=== PATIENT | male | born 1970 | race Caucasian/White ===

== ENCOUNTER → 2017-10-02 | Outpatient (CLI) | payer BC ==
[~2017-10-02] MED LIST: GLC/500 PO; LABE1TAB28 PO
[2017-10-02 13:35] LABS: BLOOD UREA NITROGEN 19 mg/dl (7-18); CALCIUM 8.6 mg/dl (8.5-10.1); CARBON DIOXIDE 28 mmol/L (21-32); CREATININE 0.85 mg/dl (0.60-1.40); GLUCOSE 163 mg/dl (70-99); POTASSIUM 4.2 mmol/L (3.5-5.1); SODIUM 139 mmol/L (136-145)
[2017-10-03 07:10] LABS: HEMOGLOBIN A1C 8.1 % (4.5-5.6)
== END | disposition home or self-care (01) ==
LOC: C.LABPBG 09:30
PROVIDERS: ATTEND Family Medicine
DX: R73.9 Hyperglycemia, unspecified (principal); E78.5 Hyperlipidemia, unspecified; E88.81 Metabolic syndrome and other insulin resistance

== ENCOUNTER 2023-10-03 14:46 | Inpatient (IN) ==
--- NOTE | 2023-10-03 15:30 | ED Triage Note ---
Date of Service October 03, 2023 Provider in Triage Author: Elise Auguste History of Present Illness This patient was briefly evaluated while in triage. An abbreviated physical exam was performed. This patient is a 52-year-old Male who presents to the ED for evaluation of an infection of a sore on his right foot. Symptoms started about 2 weeks ago, but getting worse. He saw his PCP and they referred him to the ER for further evaluation. Intermittent fevers. White discharge from the foot. Also having pain in the right calf. Has not had any blood work or imaging yet. Physical Exam GENERAL: Non-toxic and in no acute distress. HEENT: Pupils equal. No obvious scleral icterus. HEART: Regular rate and rhythm. LUNGS: Clear to auscultation. No accessory muscle use. NEURO: Alert and oriented. MUSCULOSKELETAL: The patient's right foot is bandaged and bandage was not removed in triage. He is tender to palpation over the right foot. He is also tender to palpation over the right calf with some swelling of the right lower extremity. Initial orders for labs and / or imaging were placed and patient was placed in the waiting area until a bed is available. Please see further documentation for the full ED course. MDM / Impression Impression Impression: Osteomyelitis, Cellulitis, Failure of outpatient treatment, Leukocytosis Impression: Osteomyelitis Qualifiers: Osteomyelitis type: unspecified type Osteomyelitis location: foot Laterality: right Qualified Code(s): M86.9 - Osteomyelitis, unspecified Cellulitis Qualifiers: Site of cellulitis: extremity Site of cellulitis of extremity: lower extremity Laterality: right Qualified Code(s): L03.115 - Cellulitis of right lower limb Leukocytosis Qualifiers: Leukocytosis type: unspecified Qualified Code(s): D72.829 - Elevated white blood cell count, unspecified
[2023-10-03 17:05] LABS: Basophils # (auto) 0.05 K/uL (0.00-0.20); Basophils % (auto) 0.4 %; Eosinophils # (auto) 0.04 K/uL (0.00-0.50); Eosinophils % (auto) 0.3 %; Hematocrit (blood only) 37.8 % (42.0-52.0); Hemoglobin 12.6 g/dl (14.0-18.0); Immature Granulocytes # (auto) 0.06 K/uL (0.01-0.20); Immature Granulocytes % (auto) 0.5 %; Mean Corpuscular Hemoglobin 28.3 pg (25.0-34.0); Mean Corpuscular Hgb Conc 33.3 g/dL (32.0-36.0); Mean Corpuscular Volume 84.9 fL (80.0-100.0); Mean Platelet Volume 9.1 fL (9.4-12.4); Monocytes # (auto) 0.44 K/uL (0.11-0.59); Monocytes % (auto) 3.8 %; Neutrophils # (auto) 10.07 K/uL (1.40-6.50); Platelet Count 437 K/uL (130-400); RDW Coefficient of Variation 12.2 % (11.5-14.5); RDW Standard Deviation 37.8 fL (36.4-46.3); Red Blood Count 4.45 M/uL (4.70-6.10); White Blood Count 11.46 K/ul (4.8-10.8)
[2023-10-03] MEDS: SODIUM CHLORIDE 0.9% 500 ML IV ONE ×2 (17:10→19:48)
--- NOTE | 2023-10-03 17:15 | XRay Report ---
RIGHT FOOT 3 VIEWS CLINICAL HISTORY: Infection. FINDINGS: 3 views of the right foot are correlated with radiographs of the first toe dated 01/30/2021. The skeletal structures are osteopenic. There is severe erosive/destructive change seen involving th e medial cortex throughout the first distal phalanx with bony fragmentation and displaced fragments. No additional similar foci of destructive change are identified throughout the remainder of the foot. There is significant soft tissue edema in the first toe with soft tissue gas. Mild arthritic change is seen throughout the foot, greatest at the first metatarsophalangeal joint. There are small dorsal and large plantar heel spurs. Atherosclerotic calcification is observed in the regional arteries. IMPRESSION: 1. There is osteomyelitis of the first distal phalanx as above with significant destructive change, o verlying soft tissue edema, and soft tissue gas. 2. No additional similar appearing foci of destructive bony change are seen throughout the remainder of the foot. Electronically signed by: Peng Alexandre M.D. 10/03/2023 5:14 PM
[2023-10-03 17:20] LABS: Albumin Globulin Ratio 0.9 (0.9-2); Albumin Level 4.1 gm/dl (3.4-5.0); BUN Creatinine Ratio 19.1 (10-20); Bilirubin,Total 1.1 mg/dl (0.2-1.0); Calcium 9.6 mg/dl (8.6-10.3); Creatinine Clr Calc Pharmacy 130.1 ml/min; Est GFR (African American) 108.4 ml/min; Est GFR (Non-African American) 93.5 ml/min; Globulin 4.4 gm/dl (2.5-4.0); Potassium 4.3 mmol/L (3.5-5.1); Total Protein 8.5 gm/dl (6.0-8.3)
[2023-10-03 17:30] LABS: INR 1.1 (0.9-1.1); Partial Thromboplastin Ratio 1.1; Partial Thromboplastin Time 30 Seconds (21-31); Prothrombin Time 11.9 Seconds (9.0-12.0)
[2023-10-03] MEDS ORDERED: VANCOMYCIN CONSULT ACTIVE PRN (18:59)
[2023-10-03] MEDS: CEFEPIME 2,000 MG/20 ML VIAL IV STA (20:01)
[2023-10-03] MEDS: VANCOMYCIN HCL 2,750 MG in SODIUM CHLORIDE 0.9% 500 ML IV ONE (20:08)
--- NOTE | 2023-10-03 20:28 | Emergency Department Note ---
Impression & Plan Osteomyelitis, Cellulitis, Failure of outpatient treatment, Leukocytosis ED Provider Note NAME: GERALDO MORAN AGE: 52 SEX: M : 1970 ARRIVES VIA: Walk-In INFORMANT: [Patient] ED PROVIDER(S): [Peng Anderson MD] CHIEF COMPLAINT: Infection HISTORY OF PRESENT ILLNESS: The patient is a 52-year-old male who is diabetic. He has had an ulcer on his right first toe for some time. 2 weeks ago, he noticed some increasing redness and swelling of the right foot and the right toe ulcer appeared infected. Patient noticed some pain in the right groin that he thought may be consistent with some swollen glands. He noticed a fever about a week ago. The patient spoke with his doctors office last week, they wanted him to come to the ED, the patient refused. He did see his primary doctor's office today, he was referred again to the ED. The patient did receive what sounds like amoxicillin from a family member. He has been taking this once a day for the last 5 days. Patient states that because of the swelling and odor to the wound, because of concern for infection, because at the advice of his doctors office, he presents to the ER for evaluation. PMHx/PSHx/Social Hx: See Below PHYSICAL EXAM: GENERAL: Patient is in no acute distress. HEENT: No acute trauma, normocephalic atraumatic, mucous membranes moist, no nasal congestion. NECK: No stridor, no adenopathy, no meningismus, trachea is midline. LUNGS: Clear to auscultation bilaterally, no wheeze, no rhonchi, breath sounds equal. HEART: Mildly tachycardic, regular rhythm, no murmurs. ABDOMEN: Soft, nontender, no peritonitis. EXTREMITIES: No cyanosis. The patient has a large ulcer to the medial posterior aspect of the right first toe. There is drainage and a foul odor. There is surrounding erythema and swelling that is tracking up the foot. He does have right groin adenopathy which is tender to palpate. NEUROLOGIC: Oriented x 3, no acute motor or sensory deficits, no focal weakness. SKIN: No jaundice, no diaphoresis. DIFFERENTIAL DIAGNOSIS: Osteomyelitis, cellulitis, DVT, sepsis, bacteremia, among others. EMERGENCY DEPARTMENT PROCEDURES: MEDICAL DECISION MAKING: There is a mild leukocytosis, this would be consistent with infection. Patient was somewhat anemic with a hemoglobin of 12.6. Platelet count slightly elevated. No coagulopathy. No renal failure or significant electrolyte abnormality. Lactic acid level was not elevated making severe sepsis less likely. Bilirubin mildly elevated, the remaining liver enzymes were unremarkable. Right foot film does show osteomyelitis of the first toe. Right leg venous ultrasound showed adenopathy, no clot. On exam, the patient had a large ulcer to the right first toe as well as a surrounding cellulitis. The patient received 1 L of IV saline for hydration. He was given IV vancomycin and IV cefepime. A culture of the patient's wound drainage was obtained and is pending. The patient has an osteomyelitis/cellulitis of his right foot. He is likely going to require surgical intervention/amputation. I spoke with the patient about the need for hospital stay, I did speak with case management, the on-call hospitalist was consulted. Prior/Outside records/notes reviewed: Today's family practice note describing his presentation and the referral to the ED. Imaging/x-ray results per my interpretation: Right foot film shows a right first toe osteomyelitis with soft tissue swelling. No obvious fracture. Chronic Medical/Social conditions affecting care: History of diabetes Care/Management discussed with: Case management, the on-call hospitalist. Level of care consideration(s): After review of the information above and other included data: --I believe the patient requires escalation of care to admission DISPOSITION: Admission Past Med/Surg History Medical History Diabetes mellitus type 2, uncontrolled Abnormal liver function test Cutaneous candidiasis Dysarthria Dyslipidemia Myasthenia gravis (~07/2018) Paresthesia Transient ischemic attack Venous insufficiency Vertebrobasilar artery insufficiency Vitamin D deficiency Surgical History No significant past surgical history Family History Father Renal failure Mother Rheumatoid arthritis Hypertension Breast cancer Denies family history of Colon cancer Ovarian cancer Prostate cancer Myocardial infarction Social History Smoking Status: Never smoker Second Hand Exposure: No; Do You Dip or Chew Tobacco: No; Hx Alcohol Use: No Hx Substance Use: No Preferred Language: Russian Communication Ability: Effective Visual Impairment: No Limitations Hearing Ability: Normal Field Talent Qualification Specialist Required: No marital status: Current Living Situation: Spouse current occupational status: employed How many Children do You have: 2 Feels Safe at Home: Yes Childhood Exposure to Second-Hand Smoke: No Diet: regular Dental Care, Regularly: No Physical Activity Frequency: Daily Seatbelt Use: always Sunscreen Use: No Assistive Devices: None Allergies Allergies Allergy/AdvReac Type Severity Reaction Status Date / Time doxycycline Allergy Mild Hives Verified 10/03/23 20:09 PAULINA Inhibitors AdvReac Intermediate Cough Verified 10/03/23 20:09 Home Meds Home Medications Medication Instructions Recorded Confirmed pyridostigmine bromide 60 mg tablet 120 mg PO QID PRN NEEDED FOR MS 02/22/21 10/03/23 prednisone 5 mg tablet 5 mg PO DAILY 02/21/23 10/03/23 Previous Rx's Medication Instructions Recorded blood sugar diagnostic ([employer] #100 ea 11/29/21 Verio test strips) blood-glucose meter ([employer] #1 ea 11/29/21 Verio Meter) lancets 33 gauge ([employer] Delica #100 ea 11/29/21 Lancets) tirzepatide 15 mg/0.5 mL 15 mg (0.5 mL) subcut WK #6 mL 02/21/23 subcutaneous pen injector (Urban) labetalol 200 mg tablet 200 mg PO BID #180 tabs 02/22/23 metformin 1,000 mg tablet 1,000 mg PO BID #180 tabs 09/10/23 amoxicillin 875 mg-potassium 1 tab PO Q12H 10 days #20 tabs 10/03/23 clavulanate 125 mg tablet Results & Data (ED) Vital Signs Vital Signs - 24 hr 10/03/23 15:27 10/03/23 19:45 10/03/23 19:45 Temperature 36.2 C L 37.4 C Temperature Source Temporal Artery Scan Oral Pulse Rate 103 H 102 H Pulse Rate [Finger] 103 H Respiratory Rate 20 20 Respiratory Effort / Characteristics Non-Labored Spontaneous Non-Labored Spontaneous Respiratory Depth Normal Normal Blood Pressure 138/86 Blood Pressure [Right Arm] 166/98 H Blood Pressure Mean 103 Blood Pressure Mean [Right Arm] 120 Pulse Oximetry 98 97 Oxygen Delivery Method Room Air Room Air Sepsis New/Unexplained Change in Mental Status No Sepsis Action Taken by Nursing No Action Required Home Medications Current Medication List: was personally reviewed by me Laboratory Data Attestation: I reviewed the patient's lab results. 10/03/23 16:38 10/03/23 16:38 Lab Results 10/03/23 Range/Units 16:38 WBC 11.46 H (4.8-10.8) K/ul RBC 4.45 L (4.70-6.10) M/uL Hgb 12.6 L (14.0-18.0) g/dl Hct 37.8 L (42.0-52.0) % MCV 84.9 (80.0-100.0) fL MCH 28.3 (25.0-34.0) pg MCHC 33.3 (32.0-36.0) g/dL RDW Std Deviation 37.8 (36.4-46.3) fL RDW Coeff of Berna 12.2 (11.5-14.5) % Plt Count 437 H (130-400) K/uL MPV 9.1 L (9.4-12.4) fL Immature Gran % (Auto) 0.5 % Neut % (Auto) 88.0 % Lymph % (Auto) 7.0 % [place] % (Auto) 3.8 % Eos % (Auto) 0.3 % Baso % (Auto) 0.4 % Neut # (Auto) 10.07 H (1.40-6.50) K/uL Lymph # (Auto) 0.80 L (1.20-3.40) K/uL [place] # (Auto) 0.44 (0.11-0.59) K/uL Eos # (Auto) 0.04 (0.00-0.50) K/uL Baso # (Auto) 0.05 (0.00-0.20) K/uL Immature Gran # (Auto) 0.06 (0.01-0.20) K/uL PT 11.9 (9.0-12.0) Seconds INR 1.1 (0.9-1.1) APTT 30 (21-31) Seconds PTT Ratio 1.1 Sodium 134 L (136-145) mmol/L Potassium 4.3 (3.5-5.1) mmol/L Chloride 100 (98-107) mmol/L Carbon Dioxide 24 (21-32) mmol/L Anion Gap 10 (3-11) BUN 18 (6-23) mg/dl Creatinine 0.94 (0.6-1.4) mg/dl Est Cr Clr Drug Dosing 130.1 ml/min Est GFR ( Amer) 108.4 ml/min Est GFR (Non-Af Amer) 93.5 ml/min BUN/Creatinine Ratio 19.1 (10-20) Glucose 160 H (70-99(Fasting)) mg/dl Lactate 1.4 (0.4-2.0) mmol/L Calcium 9.6 (8.6-10.3) mg/dl Magnesium 2.0 (1.7-2.4) mg/dl Total Bilirubin 1.1 H (0.2-1.0) mg/dl AST 17 (13-39) U/L ALT 18 (7-52) U/L Alkaline Phosphatase 52 (34-104) U/L Total Protein 8.5 H (6.0-8.3) gm/dl Albumin 4.1 (3.4-5.0) gm/dl Globulin 4.4 H (2.5-4.0) gm/dl Albumin/Globulin Ratio 0.9 (0.9-2) Administered Medications Acetaminophen (Acetaminophen 325 Mg Tab) 650 mg PO Q6H DELVIN Stop: 11/03/23 00:00 Last Admin: 10/04/23 00:06 Dose: Not Given Documented By: DEVON Insulin Aspart (Insulin Aspart Per Unit Charge) 0 units SC ACHS DELVIN Stop: 11/02/23 20:59 Last Admin: 10/04/23 00:18 Dose: Not Given Documented By: DEVON Co-signed By: HEMANTH Labetalol HCl (Labetalol Hcl 200 Mg Tab) 200 mg PO BID DELVIN Stop: 11/02/23 23:18 Last Admin: 10/04/23 00:06 Dose: 200 mg Documented By: DEVON Discontinued Medications Sodium Chloride (Nss) 500 mls @ 999 mls/hr IV .Q31M ONE Stop: 10/03/23 16:02 Last Infusion: 10/03/23 19:07 Dose: Infused Documented By: Admin: 10/03/23 17:10 Dose: 999 mls/hr Documented By: PAMELLA Cefepime HCl (Maxipime) 2,000 mg in 20 mls @ 5 mls/min IV NOW STA; Protocol Stop: 10/03/23 19:02 Last Admin: 10/03/23 20:01 Dose: 5 mls/min Documented By: SABAS Vancomycin HCl 2,750 mg/ (Sodium Chloride) 555 mls @ 200 mls/hr IV NOW ONE Stop: 10/03/23 21:45 Last Infusion: 10/03/23 23:12 Dose: Infused Documented By: Admin: 10/03/23 20:08 Dose: 200 mls/hr Documented By: SABAS Sodium Chloride (Nss) 500 mls @ 999 mls/hr IV .Q31M ONE Stop: 10/03/23 19:29 Last Infusion: 10/03/23 20:26 Dose: Infused Documented By: Admin: 10/03/23 19:48 Dose: 999 mls/hr Documented By: DEEPTI Insulin Glargine (Lantus Per Unit Charge) 5 units SQ BID DELVIN Stop: 11/02/23 20:59 Last Admin: 10/04/23 00:19 Dose: Not Given Documented By: DEVON Imaging Data Radiologist's Impression: Foot X-Ray 10/03/23 15:30 RIGHT FOOT 3 VIEWS CLINICAL HISTORY: Infection. FINDINGS: 3 views of the right foot are correlated with radiographs of the first toe dated 01/30/2021. The skeletal structures are osteopenic. There is severe erosive/destructive change seen involving the medial cortex throughout the first distal phalanx with bony fragmentation and displaced fragments. No additional similar foci of destructive change are identified throughout the remainder of the foot. There is significant soft tissue edema in the first toe with soft tissue gas. Mild arthritic change is seen throughout the foot, greatest at the first metatarsophalangeal joint. There are small dorsal and large plantar heel spurs. Atherosclerotic calcification is observed in the regional arteries. IMPRESSION: 1. There is osteomyelitis of the first distal phalanx as above with significant destructive change, overlying soft tissue edema, and soft tissue gas. 2. No additional similar appearing foci of destructive bony change are seen throughout the remainder of the foot. Electronically signed by: Peng Alexandre M.D. 10/03/2023 5:14 PM Venous Doppler Study 10/03/23 15:30 Exam(s): US VENOUS RIGHT LOWER EXTREMITY EXAM: US Duplex Right Lower Extremity Veins CLINICAL HISTORY: Reason for exam: Right calf pain. TECHNIQUE: Real-time duplex ultrasound scan of the right lower extremity veins integrating B-mode two-dimensional vascular structure, Doppler spectral analysis, color flow Doppler imaging and compression. COMPARISON: No relevant prior studies available. FINDINGS: Deep veins: Unremarkable. No DVT in the visualized common femoral, femoral, proximal deep femoral or popliteal veins. The veins demonstrate normal color flow, are normally compressible, with normal phasic flow and/or augmentation response. Soft tissues: No acute findings. No popliteal cyst. Lymph nodes: Prominent right inguinal lymph nodes within normal fatty hilum favored to be reactive. IMPRESSION: No evidence of right lower extremity deep venous thrombosis. Electronically signed by: Mj Modi M.D. 10/03/23 21:08 PM Discharge Plan Visit Data Chief Complaint: Infection, Wound Stated Complaint: OPEN SORE ON FOOT (R), INFECTION ED Provider: Peng Anderson Discharge Problem: Osteomyelitis, Cellulitis, Failure of outpatient treatment, Leukocytosis Patient Disposition: Admitted As Inpatient Condition: Fair Discharge Instructions Interventions: ED Discharge Assessment Last Done: 10/03/23 23:10 Discharge Problem: Osteomyelitis Qualifiers: Osteomyelitis type: unspecified type Osteomyelitis location: foot Laterality: r ight Qualified Code(s): M86.9 - Osteomyelitis, unspecified Cellulitis Qualifiers: Site of cellulitis: extremity Site of cellulitis of extremity: lower extremity Laterality: right Qualified Code(s): L03.115 - Cellulitis of right lower limb Leukocytosis Qualifiers: Leukocytosis type: unspecified Qualified Code(s): D72.829 - Elevated white blood cell count, unspecified
[2023-10-03] MEDS ORDERED: GLUCOSE 40% GEL 15 GM TUBE PO PRN (20:35)
[2023-10-03] MEDS ORDERED: DEXTROSE 50% 50 ML SYRINGE IV PRN (20:35)
[2023-10-03] MEDS ORDERED: GLUCAGON FOR INJ 1 MG VIAL SQ PRN (20:35)
[2023-10-03] MEDS ORDERED: CARBOHYDRATES FOR HYPOGLYCEMIA PO PRN (20:35)
[2023-10-03] MEDS ORDERED: GLUCOSE 10 TAB/TUBE PO PRN (20:35)
--- NOTE | 2023-10-03 20:35 | History & Physical Report ---
Date of Service October 03, 2023 Assessment & Plan (1) Osteomyelitis of right foot: Plan: -Admit to med/surge -Currently stable and non-toxic appearing -Presented to the ED for progression of right first toes infection -Xray of the right foot shows OM of the right great toe -Patient with a leukocytosis of 11, lactate WNL -RLE venous doppler negative for DVT -S/P 1L NSS, Vancomycin, and Cefepime in the ED -We will continue with Vancomycin and cefepime for now -Wound and blood cultures were obtained in the ED, continue to follow -Will obtain Arterial doppler of the RLE and MRI of the right foot wo con for further evaluation -Will consult Orthopedics for further evaluation and management -Pain control with Tylenol and Morphine -SQ lovenox for DVT PPX -HH/DMII diet -AM CBC, CMP, mag, PT/INR (2) MG, bulbar (myasthenia gravis): Plan: -On 5 mg PO prednisone daily and Pyridostigmine -Will continue prednisone for now -Patient may require stress dose steroids if he goes to the OR during this admission (3) Diabetes mellitus type 2, uncontrolled: Plan: -Monitor BSG ACHS, goal is 110-160 -Hold metformin -Start 10 units lantus BID and CF 50 ACHS -Adjust regimen as needed (4) Hypertension, benign essential, goal below 140/90: Plan: -Stable -Continue labetalol Plan The patient was discussed with Dr. Bernal at the time of the admission History of Present Illness Chief Complaint: right foot infection Primary Care Provider: Mary Matute MD Marco is a 52 year old male with a PMH significant for Myasthenia Gravis (on chronic prednisone), recurrent Diabetic foot ulcerations, GERD, HTN, DM2 uncontrolled, HLD, TIA, and Herpes genitalis(on valacyclovir) who presented to the [facility] ED from his PCP's office today (10/03/23) due to concerns for right foot/toe infection. He was noted to be tachycardic at 103 and hypertensive at 166/98 on arrival but was otherwise stable. Labs were significant for a leukocytosis of 11 with neutrophil predominance of 10 and lactate WNL. Xray of the right foot was read as "1. There is osteomyelitis of the first distal phalanx as above with significant destructive change, overlying soft tissue edema, and soft tissue gas. 2. No additional similar appearing foci of destructive bony change are seen throughout the remainder of the foot. Venous doppler of the RLE was in process at the time of admission. Prior to admission the patient was given 1L NSS and a dose of Vancomycin and Cefepime. Patient was sitting comfortably in bed at the time of the exam. States that he has been working with Neurology to reduce the dose of his chronic prednisone as the higher doses were causing persistent hyperglycemia. He has had a diabetic ulcer on the right great toe for approximately 2 years but had been able to keep if from becoming infected. Approximately 2 weeks ago he started to develop an infection at the diabetic foot ulcer. He spoke to a family friend who prescribed him Amoxicillin but the infection progressed. Waterman feverish last night, denies recent chest pain, SOB, abd pain, nausea, vomiting, dysuria, hematuria, diarrhea, and recent trauma. States that if his toe needs to be amputated for source control and prevention of the infection moving further up his foot/leg he is fine with it. Please refer to Dr. Bernal's attestation for any changes to the treatment plan Allergies Allergy/AdvReac Type Severity Reaction Status Date / Time doxycycline Allergy Mild Hives Verified 10/03/23 20:09 PAULINA Inhibitors AdvReac Intermediate Cough Verified 10/03/23 20:09 Home Medications Medication Instructions Recorded Confirmed Type pyridostigmine bromide 60 mg tablet 120 mg PO QID PRN NEEDED FOR MS 02/22/21 10/03/23 History blood sugar diagnostic (OneTouch #100 ea 11/29/21 10/03/23 Rx Verio test strips) blood-glucose meter (OneTouch #1 ea 11/29/21 10/03/23 Rx Verio Meter) lancets 33 gauge (OneTouch Delica #100 ea 11/29/21 10/03/23 Rx Lancets) prednisone 5 mg tablet 5 mg PO DAILY 02/21/23 10/03/23 History tirzepatide 15 mg/0.5 mL 15 mg (0.5 mL) subcut WK #6 mL 02/21/23 10/03/23 Rx subcutaneous pen injector (Urban) labetalol 200 mg tablet 200 mg PO BID #180 tabs 02/22/23 10/03/23 Rx metformin 1,000 mg tablet 1,000 mg PO BID #180 tabs 09/10/23 10/03/23 Rx amoxicillin 875 mg-potassium 1 tab PO Q12H 10 days #20 tabs 10/03/23 10/03/23 Rx clavulanate 125 mg tablet Past Med/Surg History Medical History Diabetes mellitus type 2, uncontrolled Abnormal liver function test Cutaneous candidiasis Dysarthria Dyslipidemia Myasthenia gravis (~07/2018) Paresthesia Transient ischemic attack Venous insufficiency Vertebrobasilar artery insufficiency Vitamin D deficiency Surgical History No significant past surgical history Family History Father Renal failure Mother Rheumatoid arthritis Hypertension Breast cancer Denies family history of Colon cancer Ovarian cancer Prostate cancer Myocardial infarction Social History Smoking Status: Never smoker Second Hand Exposure: No; Do You Dip or Chew Tobacco: No; Hx Alcohol Use: No Hx Substance Use: No Preferred Language: Khmer Communication Ability: Effective Visual Impairment: No Limitations Hearing Ability: Normal Technical Support Coordinator Required: No Beliefs That Will Affect Care: None marital status: Current Living Situation: Spouse current occupational status: employed How many Children do You have: 2 Other Information That Helps Us Care for You: No Feels Safe at Home: Yes Safety Concerns: Feels Safe At This Time Childhood Exposure to Second-Hand Smoke: No Diet: regular Dental Care, Regularly: No Physical Activity Frequency: Daily Seatbelt Use: always Sunscreen Use: No Assistive Devices: None Physical Exam Physical Exam: Physical Exam: General: In no acute distress, stated age, well-nourished, good hygiene HEENT: Normocephalic, atraumatic, no scleral icterus, pupils around round, symmetrical, and reactive to light, moist mucus membranes, trachea midline, no thyromegaly Chest/Pulm: No respiratory distress, symmetrical chest expansion, clear breath sounds throughout Cardiac: RRR, no murmurs noted Abdomen: Negative for ascites and bruising, normoactive bowel sounds, soft, non-tender to palpation throughout Musculoskeletal: Large diabetic wound covering the majority of the ventral and lateral aspect of the right great toe with purulent drainage Extremities: Radial, dorsalis pedis, and posterior tibial pulses are intact and symmetrical, no edema noted in the BL LE's Skin: Erythema noted on the dorsal aspect of the right foot Neuro: Alert and oriented to person, place, month, year, and president, no focal defects, no tremors noted Psych: No acute distress, calm and cooperative during the exam Results & Data Results & Data Vital Signs (Past 12 Hours) Vital Signs Temp Pulse Pulse Resp BP BP Pulse Ox 10/03/23 19:45 102 H 10/03/23 19:45 37.4 C 103 H 20 166/98 H 97 10/03/23 15:27 36.2 C L 103 H 20 138/86 98 O2 Del Method 10/03/23 19:45 10/03/23 19:45 Room Air 10/03/23 15:27 Room Air Laboratory Results Abnormal lab results 10/03/23 Range/Units 16:38 WBC 11.46 H (4.8-10.8) K/ul RBC 4.45 L (4.70-6.10) M/uL Hgb 12.6 L (14.0-18.0) g/dl Hct 37.8 L (42.0-52.0) % Plt Count 437 H (130-400) K/uL MPV 9.1 L (9.4-12.4) fL Neut # (Auto) 10.07 H (1.40-6.50) K/uL Lymph # (Auto) 0.80 L (1.20-3.40) K/uL Sodium 134 L (136-145) mmol/L Glucose 160 H (70-99(Fasting)) mg/dl Total Bilirubin 1.1 H (0.2-1.0) mg/dl Total Protein 8.5 H (6.0-8.3) gm/dl Globulin 4.4 H (2.5-4.0) gm/dl Diagnostic Findings Foot X-Ray 10/03/23 15:30 RIGHT FOOT 3 VIEWS CLINICAL HISTORY: Infection. FINDINGS: 3 views of the right foot are correlated with radiographs of the first toe dated 01/30/2021. The skeletal structures are osteopenic. There is severe erosive/destructive change seen involving the medial cortex throughout the first distal phalanx with bony fragmentation and displaced fragments. No additional similar foci of destructive change are identified throughout the remainder of the foot. There is significant soft tissue edema in the first toe with soft tissue gas. Mild arthritic change is seen throughout the foot, greatest at the first metatarsophalangeal joint. There are small dorsal and large plantar heel spurs. Atherosclerotic calcification is observed in the regional arteries. IMPRESSION: 1. There is osteomyelitis of the first distal phalanx as above with significant destructive change, overlying soft tissue edema, and soft tissue gas. 2. No additional similar appearing foci of destructive bony change are seen throughout the remainder of the foot. Electronically signed by: Peng Alexandre M.D. 10/03/2023 5:14 PM Venous Doppler Study 10/03/23 15:30 Exam(s): US VENOUS RIGHT LOWER EXTREMITY EXAM: US Duplex Right Lower Extremity Veins CLINICAL HISTORY: Reason for exam: Right calf pain. TECHNIQUE: Real-time duplex ultrasound scan of the right lower extremity veins integrating B-mode two-dimensional vascular structure, Doppler spectral analysis, color flow Doppler imaging and compression. COMPARISON: No relevant prior studies available. FINDINGS: Deep veins: Unremarkable. No DVT in the visualized common femoral, femoral, proximal deep femoral or popliteal veins. The veins demonstrate normal color flow, are normally compressible, with normal phasic flow and/or augmentation response. Soft tissues: No acute findings. No popliteal cyst. Lymph nodes: Prominent right inguinal lymph nodes within normal fatty hilum favored to be reactive. IMPRESSION: No evidence of right lower extremity deep venous thrombosis. Electronically signed by: Mj Modi M.D. 10/03/23 21:08 PM Code Status & VTE Plan Code Status FUll code VTE Prophylaxis Plan VTE Prophylaxis will be ordered: Yes Supervising Physician Co-Signing Physician Notes Attending addendum: I have physically seen this patient, have supervised the MARCUS's activities, and agree with the H&P unless as otherwise noted. Assessment and Plan: Diabetic foot ulcer/right great toe osteomyelitis- X-ray of right foot shows osteomyelitis of distal phalanx of right great toe Right lower extremity venous Doppler negative for DVT From the ED received the followin L normal saline, vancomycin IV, and cefepime IV Continue vancomycin IV and cefepime IV Follow wound and blood cultures and sensitivities Order lower extremity arterial Doppler Order MRI of right foot to determine full extent of infection Pain management as noted with Tylenol and IV morphine Consult orthopedic surgery/podiatric surgery Myasthenia gravis- Continue prednisone and pyridostigmine Diabetes mellitus- Holding metformin Lantus and coverage scale insulin as noted PG Care Time/CCT Total # of Minutes Spent Total Time Spent with Patient: Total time spent is greater than 50% in coordination of care (as documented) at patient's floor/unit and/or counseling patient: Coding [place] [address] INT INP/OBS CARE 3/75MIN Patient Type Established Medical Decision Making High Complexity Diagnoses Osteomyelitis of right foot M86.9 MG, bulbar (myasthenia gravis) G70.00 Diabetes mellitus type 2, uncontrolled E11.65 Hypertension, benign essential, goal below 140/90 I10
--- NOTE | 2023-10-03 21:09 | Ultrasound Report ---
Exam(s): US VENOUS RIGHT LOWER EXTREMITY EXAM: US Duplex Right Lower Extremity Veins CLINICAL HISTORY: Reason for exam: Right calf pain. TECHNIQUE: Real-time duplex ultrasound scan of the right lower extremity veins integrating B-mode two-dimensional vascular structure, Doppler spectral analysis, color flow Doppler imaging and compression. COMPARISON: No relevant prior studies available. FINDINGS: Deep veins: Unremarkable. No DVT in the visualized common femoral, femoral, proximal deep femoral or popliteal veins. The veins demonstrate normal color flow, are normally compressible, with normal phasic flow and/or augmentation response. Soft tissues: No acute findings. No popliteal cyst. Lymph nodes: Prominent right inguinal lymph nodes within normal fatty hilum favored to be reactive. IMPRESSION: No evidence of right lower extremity deep venous thrombosis. Electronically signed by: Mj Modi M.D. 10/03/23 21:08 PM
[2023-10-03] MEDS ORDERED: pyRIDostigmine bromide 60 MG TAB PO PRN (23:19)
[2023-10-04] MEDS: ACETAMINOPHEN 325 MG TAB PO SCH (00:06)
[2023-10-04] MEDS: LABETALOL HCL 200 MG TAB PO SCH (00:06)
[2023-10-04] MEDS: INSULIN ASPART PER UNIT CHARGE SC SCH ×2 (00:18→05:51)
[2023-10-04] MEDS: LANTUS PER UNIT CHARGE SQ SCH ×2 (00:19→08:09)
--- NOTE | 2023-10-04 00:28 | Magnetic Resonance Report ---
Exam(s): MRI RIGHT FOOT Without Contrast EXAM: MR Right Lower Extremity Without Intravenous Contrast, Foot CLINICAL HISTORY: Reason for exam: OM right first toe, monitor for progression. TECHNIQUE: Multiplanar magnetic resonance images of the right foot without intravenous contrast. COMPARISON: No relevant prior studies available. FINDINGS: Positive for osteomyelitis of the great toe, consisting of edema and marrow infiltration of the great toe proximal and distal phalanges. Ulceration along the medial aspect of the great toe measured approximately 1.8 cm and is 1 cm deep. No remaining areas of osteomyelitis. No fluid collection or abscess. Moderate dorsal subcutaneous edema along the lateral aspect of the midfoot. No acute fracture. IMPRESSION: Positive for osteomyelitis of the great toe, with medial ulcer measuring 1.8 cm. No fluid collection or abscess. Electronically signed by: Kash Arthur MD 10/04/23 00:27 AM
[2023-10-04] MEDS: CEFEPIME 2,000 MG in SYRINGE 0 ML IV SCH (04:54)
[2023-10-04] MEDS: ENOXAPARIN INJ 40 MG/0.4 ML SYR SQ SCH (04:55)
[2023-10-04] MEDS ORDERED: Nursing to Pharmacy Communication SCH (05:00)
[2023-10-04 06:54] LABS: Basophils # (auto) 0.06 K/uL (0.00-0.20); Basophils % (auto) 0.8 %; Eosinophils # (auto) 0.16 K/uL (0.00-0.50); Eosinophils % (auto) 2.1 %; Hematocrit (blood only) 34.9 % (42.0-52.0); Hemoglobin 11.4 g/dl (14.0-18.0); Immature Granulocytes # (auto) 0.03 K/uL (0.01-0.20); Immature Granulocytes % (auto) 0.4 %; Lymphocytes # (auto) 1.79 K/uL (1.20-3.40); Lymphocytes % (auto) 23.5 %; Mean Corpuscular Hemoglobin 27.9 pg (25.0-34.0); Mean Corpuscular Hgb Conc 32.7 g/dL (32.0-36.0); Mean Corpuscular Volume 85.5 fL (80.0-100.0); Mean Platelet Volume 9.3 fL (9.4-12.4); Monocytes # (auto) 0.47 K/uL (0.11-0.59); Monocytes % (auto) 6.2 %; Platelet Count 409 K/uL (130-400); RDW Coefficient of Variation 12.2 % (11.5-14.5); RDW Standard Deviation 37.9 fL (36.4-46.3); Red Blood Count 4.08 M/uL (4.70-6.10); White Blood Count 7.61 K/ul (4.8-10.8)
[2023-10-04 07:15] LABS: INR 1.1 (0.9-1.1); Prothrombin Time 11.9 Seconds (9.0-12.0)
[2023-10-04 07:16] LABS: Albumin Globulin Ratio 0.9 (0.9-2); Albumin Level 3.5 gm/dl (3.4-5.0); BUN Creatinine Ratio 17.1 (10-20); Calcium 9.2 mg/dl (8.6-10.3); Est GFR (African American) 118.7 ml/min; Est GFR (Non-African American) 102.4 ml/min; Globulin 3.8 gm/dl (2.5-4.0); Potassium 3.7 mmol/L (3.5-5.1); Total Protein 7.3 gm/dl (6.0-8.3)
[2023-10-04] MEDS: VANCOMYCIN HCL 1,750 MG in SODIUM CHLORIDE 0.9% 500 ML IV SCH (08:07)
[2023-10-04] MEDS: pyRIDostigmine bromide 60 MG TAB PO SCH (08:12)
[2023-10-04] MEDS: predniSONE 5 MG TAB PO SCH (08:12)
[2023-10-04 09:06] LABS: Estimated Average Glucose 154 mg/dl
--- NOTE | 2023-10-04 10:00 | History & Physical Report ---
Date of Service October 04, 2023 Assessment & Plan (1) Osteomyelitis of right foot: Plan: Patient I discussed findings of the ulceration of right great toe and osteomyelitis. He has had imaging both x-ray and MRI which confirmed this. Dr. Lao is aware of consult and was recommending patient have arterial study prior to surgical planning. This was just obtained results pending. Anticipate patient will be taken to the OR today for amputation of right great toe. Case will need to be discussed further with Dr. Lao for surgical plan and consent will need to be obtained. I did discuss with patient risk of nonoperative intervention as well as risk with surgical intervention including but not limited to infection, bleeding, neurovascular damage, tendon, ligament or muscular damage, pain, embolism, DVT, phantom pain, heart attack, stroke, or . Patient has been n.p.o. since midnight. He was advised to continue to be n.p.o. He has been receiving IV Antibiotics since ER admission will continue with this. Recommend holding any anticoagulation till postoperative. Patient will continue nonweightbearing on toe may heel walk if safe. He had blood cultures obtained while in the ER will continue to follow. I did discuss with patient he most likely will require at least 6 weeks of IV antibiotics and a PICC line. Patient will need consent for this as well as a consult for infectious disease. Recommend continue care with primary team for pain control, medical management, and DVT prophylaxis postoperatively. Present on Admission?: Yes (2) Non-healing open wound of toe: Admission and Anticipated Discharge Date Admission Date: October 03, 2023 History of Present Illness Primary Care Provider: Mary Matute MD Patient is a 52-year-old male who our services were asked to consult on for a right great toe ulceration with osteomyelitis. Patient was seen bedside this morning at approximately 9 15 a.m. He is alert and oriented x 3 in good spirits. He explains that he has had problems with a wound on his right great toe for approximately 2 years. He explains that he is a diabetic that has a history of being uncontrolled and has a history of myasthenia gravis and had been taken large amounts of prednisone to control this. He explains most recently his steroid dose has been decreased to 5 mg. He states he had not had care for the toe for approximately a year because it was not bothersome and was small did not change in any size. He does report he did see [facility] for short period time with Dr. Ragland however he was unable to afford the $250 visit so he stopped going. He states for the past week the toe has grown in size with the wound on the bottom of his toe as well as the size of the toe has become swollen and painful if he bumps it. Otherwise he has no pain. He states he does have some tingling in his foot and diminished sensation compared to the left foot. He states that a week ago he started developing some fever and chills but this since has subsided. He denies being on any recent antibiotics besides what he started in the ER. He is ambulatory and employed by [id number]. He states he has not had anything to eat or drink since midnight last night. He has no history of cardiac or pulmonary issues, history of MRSA infections, latex or metal allergies. It is noted in his history he has history of a TIA. He denies any night sweats nausea or vomiting. Allergies Allergy/AdvReac Type Severity Reaction Status Date / Time doxycycline Allergy Mild Hives Verified 10/03/23 20:09 PAULINA Inhibitors AdvReac Intermediate Cough Verified 10/03/23 20:09 Home Medications Medication Instructions Recorded Confirmed Type pyridostigmine bromide 60 mg tablet 120 mg PO QID PRN NEEDED FOR MS 02/22/21 10/03/23 History blood sugar diagnostic (OneTouch #100 ea 11/29/21 10/03/23 Rx Verio test strips) blood-glucose meter (OneTouch #1 ea 11/29/21 10/03/23 Rx Verio Meter) lancets 33 gauge (OneTouch Delica #100 ea 11/29/21 10/03/23 Rx Lancets) prednisone 5 mg tablet 5 mg PO DAILY 02/21/23 10/03/23 History tirzepatide 15 mg/0.5 mL 15 mg (0.5 mL) subcut WK #6 mL 02/21/23 10/03/23 Rx subcutaneous pen injector (Urban) labetalol 200 mg tablet 200 mg PO BID #180 tabs 02/22/23 10/03/23 Rx metformin 1,000 mg tablet 1,000 mg PO BID #180 tabs 09/10/23 10/03/23 Rx amoxicillin 875 mg-potassium 1 tab PO Q12H 10 days #20 tabs 10/03/23 10/03/23 Rx clavulanate 125 mg tablet Past Med/Surg History Medical History Diabetes mellitus type 2, uncontrolled Abnormal liver function test Cutaneous candidiasis Dysarthria Dyslipidemia Myasthenia gravis (~07/2018) Paresthesia Transient ischemic attack Venous insufficiency Vertebrobasilar artery insufficiency Vitamin D deficiency Surgical History No significant past surgical history Family History Father Renal failure Mother Rheumatoid arthritis Hypertension Breast cancer Denies family history of Colon cancer Ovarian cancer Prostate cancer Myocardial infarction Social History Smoking Status: Never smoker Second Hand Exposure: No; Do You Dip or Chew Tobacco: No; Hx Alcohol Use: No Hx Substance Use: No Preferred Language: Romanian Communication Ability: Effective Visual Impairment: No Limitations Hearing Ability: Normal Certified Prosthetist Required: No Beliefs That Will Affect Care: None marital status: Current Living Situation: Spouse current occupational status: employed How many Children do You have: 2 Other Information That Helps Us Care for You: No Feels Safe at Home: Yes Safety Concerns: Feels Safe At This Time Childhood Exposure to Second-Hand Smoke: No Diet: regular Dental Care, Regularly: No Physical Activity Frequency: Daily Seatbelt Use: always Sunscreen Use: No Assistive Devices: None Review of Systems Constitutional: as per Subjective / HPI Eyes: Denies any vision changes Respiratory: Denies any shortness of breath Cardiovascular: Additional Comments: Denies any chest pain or cardiac issues Gastrointestinal: as per Subjective / HPI Musculoskeletal: as per Subjective / HPI Integumentary: as per Subjective / HPI Neurologic: as per Subjective / HPI Physical Exam Physical Exam: General: Patient is alert and oriented x 3 in good spirits answer questions appropriately does not appear to be in any distress and does not appear to be ill Eyes: EOM intact bilaterally ENMT: external ear and nose normal, oropharynx normal Respiratory: normal respiratory effort, lungs clear to auscultation Cardiovascular: RRR, no murmur, no edema Musculoskeletal: Attention and exam was focused on the right foot. There is a dressing intact with light soiling. This was removed. There is odor with purulent drainage and ulceration on the plantar aspect of the great toe with visible bone. The great toe is edematous and erythematous to the distal first MTP.The nail is intact and discolored with small area that is necrotic on the dorsal aspect. Over the dorsal aspect distally on the toe there is another small area that appears to be necrotic. The toe otherwise has dried skin surrounding this area. His motion of the great toe is limited he is able to wiggle other toes. His sensation is subjectively diminished over the plantar and dorsal aspect of the foot. He is able to do ankle active range of motion without increased pain and is equal to the left ankle. I am unable to appreciate dorsal pedis pulse with palpation. Skin: Refer to musculoskeletal Neurologic: Diminished sensation Psychiatric: Orientation: alert and oriented x 3 Results & Data Results & Data Vital Signs (Past 12 Hours) Vital Signs Temp Pulse Pulse Resp BP BP Pulse Ox 10/04/23 08:47 36.6 C 90 18 167/92 H 97 10/04/23 00:00 10/04/23 00:00 36.5 C 86 20 164/91 H 97 10/03/23 23:19 36.5 C 86 20 164/91 H 97 10/03/23 23:07 95 H 20 186/100 H 96 O2 Del Method 10/04/23 08:47 Room Air 10/04/23 00:00 Room Air 10/04/23 00:00 Room Air 10/03/23 23:19 Room Air 10/03/23 23:07 Room Air Laboratory Results 10/04/23 10/04/23 10/03/23 Range/Units 05:49 05:47 23:23 WBC 7.61 (4.8-10.8) K/ul RBC 4.08 L (4.70-6.10) M/uL Hgb 11.4 L (14.0-18.0) g/dl Hct 34.9 L (42.0-52.0) % MCV 85.5 (80.0-100.0) fL MCH 27.9 (25.0-34.0) pg MCHC 32.7 (32.0-36.0) g/dL RDW Std Deviation 37.9 (36.4-46.3) fL RDW Coeff of Berna 12.2 (11.5-14.5) % Plt Count 409 H (130-400) K/uL MPV 9.3 L (9.4-12.4) fL Immature Gran % (Auto) 0.4 % Neut % (Auto) 67.0 % Lymph % (Auto) 23.5 % [place] % (Auto) 6.2 % Eos % (Auto) 2.1 % Baso % (Auto) 0.8 % Neut # (Auto) 5.10 (1.40-6.50) K/uL Lymph # (Auto) 1.79 (1.20-3.40) K/uL [place] # (Auto) 0.47 (0.11-0.59) K/uL Eos # (Auto) 0.16 (0.00-0.50) K/uL Baso # (Auto) 0.06 (0.00-0.20) K/uL Immature Gran # (Auto) 0.03 (0.01-0.20) K/uL PT 11.9 (9.0-12.0) Seconds INR 1.1 (0.9-1.1) APTT (21-31) Seconds PTT Ratio Sodium 139 (136-145) mmol/L Potassium 3.7 (3.5-5.1) mmol/L Chloride 105 (98-107) mmol/L Carbon Dioxide 25 (21-32) mmol/L Anion Gap 9 (3-11) BUN 14 (6-23) mg/dl Creatinine 0.82 (0.6-1.4) mg/dl Est Cr Clr Drug Dosing 152.0 ml/min Est GFR ( Amer) 118.7 ml/min Est GFR (Non-Af Amer) 102.4 ml/min BUN/Creatinine Ratio 17.1 (10-20) Glucose 106 H (70-99(Fasting)) mg/dl POC Glucose 115 H 146 H (70-99) mg/dl Estimat Average Glucose 154 mg/dl Hemoglobin A1c 7.0 H (4.5-5.6) % Lactate (0.4-2.0) mmol/L Calcium 9.2 (8.6-10.3) mg/dl Magnesium 2.0 (1.7-2.4) mg/dl Total Bilirubin 1.0 (0.2-1.0) mg/dl AST 13 (13-39) U/L ALT 14 (7-52) U/L Alkaline Phosphatase 44 (34-104) U/L Total Protein 7.3 (6.0-8.3) gm/dl Albumin 3.5 (3.4-5.0) gm/dl Globulin 3.8 (2.5-4.0) gm/dl Albumin/Globulin Ratio 0.9 (0.9-2) 10/03/23 Range/Units 16:38 WBC 11.46 H (4.8-10.8) K/ul RBC 4.45 L (4.70-6.10) M/uL Hgb 12.6 L (14.0-18.0) g/dl Hct 37.8 L (42.0-52.0) % MCV 84.9 (80.0-100.0) fL MCH 28.3 (25.0-34.0) pg MCHC 33.3 (32.0-36.0) g/dL RDW Std Deviation 37.8 (36.4-46.3) fL RDW Coeff of Berna 12.2 (11.5-14.5) % Plt Count 437 H (130-400) K/uL MPV 9.1 L (9.4-12.4) fL Immature Gran % (Auto) 0.5 % Neut % (Auto) 88.0 % Lymph % (Auto) 7.0 % [place] % (Auto) 3.8 % Eos % (Auto) 0.3 % Baso % (Auto) 0.4 % Neut # (Auto) 10.07 H (1.40-6.50) K/uL Lymph # (Auto) 0.80 L (1.20-3.40) K/uL [place] # (Auto) 0.44 (0.11-0.59) K/uL Eos # (Auto) 0.04 (0.00-0.50) K/uL Baso # (Auto) 0.05 (0.00-0.20) K/uL Immature Gran # (Auto) 0.06 (0.01-0.20) K/uL PT 11.9 (9.0-12.0) Seconds INR 1.1 (0.9-1.1) APTT 30 (21-31) Seconds PTT Ratio 1.1 Sodium 134 L (136-145) mmol/L Potassium 4.3 (3.5-5.1) mmol/L Chloride 100 (98-107) mmol/L Carbon Dioxide 24 (21-32) mmol/L Anion Gap 10 (3-11) BUN 18 (6-23) mg/dl Creatinine 0.94 (0.6-1.4) mg/dl Est Cr Clr Drug Dosing 130.1 ml/min Est GFR ( Amer) 108.4 ml/min Est GFR (Non-Af Amer) 93.5 ml/min BUN/Creatinine Ratio 19.1 (10-20) Glucose 160 H (70-99(Fasting)) mg/dl POC Glucose (70-99) mg/dl Estimat Average Glucose mg/dl Hemoglobin A1c (4.5-5.6) % Lactate 1.4 (0.4-2.0) mmol/L Calcium 9.6 (8.6-10.3) mg/dl Magnesium 2.0 (1.7-2.4) mg/dl Total Bilirubin 1.1 H (0.2-1.0) mg/dl AST 17 (13-39) U/L ALT 18 (7-52) U/L Alkaline Phosphatase 52 (34-104) U/L Total Protein 8.5 H (6.0-8.3) gm/dl Albumin 4.1 (3.4-5.0) gm/dl Globulin 4.4 H (2.5-4.0) gm/dl Albumin/Globulin Ratio 0.9 (0.9-2) Diagnostic Findings Foot X-Ray 10/03/23 15:30 RIGHT FOOT 3 VIEWS CLINICAL HISTORY: Infection. FINDINGS: 3 views of the right foot are correlated with radiographs of the first toe dated 01/30/2021. The skeletal structures are osteopenic. There is severe erosive/destructive change seen involving the medial cortex throughout the first distal phalanx with bony fragmentation and displaced fragments. No additional similar foci of destructive change are identified throughout the remainder of the foot. There is significant soft tissue edema in the first toe with soft tissue gas. Mild arthritic change is seen throughout the foot, greatest at the first metatarsophalangeal joint. There are small dorsal and large plantar heel spurs. Atherosclerotic calcification is observed in the regional arteries. IMPRESSION: 1. There is osteomyelitis of the first distal phalanx as above with significant destructive change, overlying soft tissue edema, and soft tissue gas. 2. No additional similar appearing foci of destructive bony change are seen throughout the remainder of the foot. Electronically signed by: Peng Alexandre M.D. 10/03/2023 5:14 PM Venous Doppler Study 10/03/23 15:30 Exam(s): US VENOUS RIGHT LOWER EXTREMITY EXAM: US Duplex Right Lower Extremity Veins CLINICAL HISTORY: Reason for exam: Right calf pain. TECHNIQUE: Real-time duplex ultrasound scan of the right lower extremity veins integrating B-mode two-dimensional vascular structure, Doppler spectral analysis, color flow Doppler imaging and compression. COMPARISON: No relevant prior studies available. FINDINGS: Deep veins: Unremarkable. No DVT in the visualized common femoral, femoral, proximal deep femoral or popliteal veins. The veins demonstrate normal color flow, are normally compressible, with normal phasic flow and/or augmentation response. Soft tissues: No acute findings. No popliteal cyst. Lymph nodes: Prominent right inguinal lymph nodes within normal fatty hilum favored to be reactive. IMPRESSION: No evidence of right lower extremity deep venous thrombosis. Electronically signed by: Mj Modi M.D. 10/03/23 21:08 PM Foot MRI 10/03/23 21:59 Exam(s): MRI RIGHT FOOT Without Contrast EXAM: MR Right Lower Extremity Without Intravenous Contrast, Foot CLINICAL HISTORY: Reason for exam: OM right first toe, monitor for progression. TECHNIQUE: Multiplanar magnetic resonance images of the right foot without intravenous contrast. COMPARISON: No relevant prior studies available. FINDINGS: Positive for osteomyelitis of the great toe, consisting of edema and marrow infiltration of the great toe proximal and distal phalanges. Ulceration along the medial aspect of the great toe measured approximately 1.8 cm and is 1 cm deep. No remaining areas of osteomyelitis. No fluid collection or abscess. Moderate dorsal subcutaneous edema along the lateral aspect of the midfoot. No acute fracture. IMPRESSION: Positive for osteomyelitis of the great toe, with medial ulcer measuring 1.8 cm. No fluid collection or abscess. Electronically signed by: Kash Arthur MD 10/04/23 00:27 AM Code Status & VTE Plan VTE Prophylaxis Plan VTE Prophylaxis will be ordered: Yes Supervising Physician Co-Signing Physician Notes I, Dr. Lao, saw and examined the patient. I discussed the management with my PA. I reviewed my PAs note and agree with the documented findings and attest to completing the substantive portion of medical decision making and plan of care I developed.Patient is ready for OR today, I obtained consent for right great toe amputation.
--- NOTE | 2023-10-04 10:25 | Pharmacy Report ---
Pharmacy PK ABX Note - Date of Service October 04, 2023 - Assessment and Plan Assessment 52 year old M started on Vancomycin for treatment of diabetic foot infection and confirmed Osteomyelitis. Pertinent microbiologic data includes: Blood cultures and Toe wound culture pending. He will be getting R great toe amputation today for the Osteomyelitis. Day #2 of antimicrobial therapy. Expecting 6 weeks of IV antibiotic. Plan Vancomycin * Loading dose: 2750 mg IV x 1 given yesterday evening. * Maintenance dose: 1750 mg IV every 12 hours * Regimen is predicted to achieve target AUC/JAMIA of 400-600 mg/L.hr * Random level ordered for: 10/04 with AM labs Pharmacy will continue to follow and will adjust dose/frequency as necessary. Thank you. Pharmacy has transitioned to AUC monitoring for vancomycin. AUC/JAMIA is the preferred PK/PD target and is associated with decreased risk of nephrotoxicity compared to traditional trough targets.
--- NOTE | 2023-10-04 11:13 | Ultrasound Report ---
ULTRASOUND RIGHT LOWER EXTREMITY ARTERIAL CLINICAL HISTORY: Diabetic foot wound. COMPARISON STUDY: No priors. TECHNIQUE: Real-time grayscale and color Doppler sonography of the arteries of the right lower extrem ity is performed from the inguinal crease to the foot. Ankle-brachial indices were not assessed due t o right lower extremity cellulitis and pain. FINDINGS: Atherosclerotic plaque and irregularity is seen throughout the arteries of the right lower extremity. There are triphasic waveforms in the common femoral artery with velocities measuring up to 113 cm/s. The profundus femoris artery is patent with velocities measuring up to 55 cm per second. T here are triphasic arterial waveforms throughout the superficial, femoral and popliteal arteries. [place] ocities in the superficial femoral artery measure up to 111 cm/s and velocities in the popliteal luis alfredo ry measure up to 101 cm/s. Normal arterial waveforms are maintained throughout the calf vessels. Ther e is three-vessel runoff to the foot. Velocities in the calf arteries measure up to 133 cm/s. The dennis salis pedis artery is patent with velocities measure up to 161 cm second. IMPRESSION: 1. There is no sonographic evidence of high-grade stenosis or focal vessel cut off throughout the art eries of the right lower extremity. 2. Ankle brachial disease were not assessed due to lower extremity cellulitis and pain. Dictated: 10/04/2023 8:57 AM Transcribed: 10/04/2023 9:38 AM Aly [id number] [email or web address] Electronically signed by: Peng Alexandre M.D. 10/04/2023 11:12 AM
[2023-10-04] MEDS: LACTATED RINGER'S 1,000 ML IV SCH (14:23)
[2023-10-04] MEDS ORDERED: ePHEDrine sulfate 50 MG/ML AMP IV PRN (15:22)
[2023-10-04] MEDS ORDERED: ONDANSETRON INJ 2 MG/ML 2 ML VIAL IV PRN (15:22)
[2023-10-04] MEDS ORDERED: ATROPINE SULFATE 0.1 MG/ML 10ML SYR IV PRN (15:22)
[2023-10-04] MEDS ORDERED: fentaNYL citrate PF 100 MCG/2 ML VIAL IV PRN (15:22)
--- NOTE | 2023-10-04 15:22 | Anesthesiology Consultation ---
Date of Service October 04, 2023 Assessment & Plan (1) Encounter for pre-operative examination: Chart Review Chart Review: Acceptable Risk for Surgery and Patient NOT seen in Pre Admission Testing Consults Requested none History Surgery Operation Date: 10/04/23 12:10 Proposed Procedures p Right Great Toe Amputation - Horacio Kandace Lao MD Height/Weight Height: 6 ft 4 in Weight: 121.8 kg Allergies Allergy/AdvReac Type Severity Reaction Status Date / Time doxycycline Allergy Mild Hives Verified 10/03/23 20:09 PAULINA Inhibitors AdvReac Intermediate Cough Verified 10/03/23 20:09 Medications Home Medications Medication Instructions Recorded Confirmed Last Taken pyridostigmine bromide 60 mg tablet 120 mg PO QID PRN NEEDED FOR MS 02/22/21 10/03/23 Unknown blood sugar diagnostic (OneTouch #100 ea 11/29/21 10/03/23 Unknown Verio test strips) blood-glucose meter (OneTouch #1 ea 11/29/21 10/03/23 Unknown Verio Meter) lancets 33 gauge (OneTouch Delica #100 ea 11/29/21 10/03/23 Unknown Lancets) prednisone 5 mg tablet 5 mg PO DAILY 02/21/23 10/03/23 Unknown tirzepatide 15 mg/0.5 mL 15 mg (0.5 mL) subcut WK #6 mL 02/21/23 10/03/23 Unknown subcutaneous pen injector (Urban) labetalol 200 mg tablet 200 mg PO BID #180 tabs 02/22/23 10/03/23 Unknown metformin 1,000 mg tablet 1,000 mg PO BID #180 tabs 09/10/23 10/03/23 Unknown amoxicillin 875 mg-potassium 1 tab PO Q12H 10 days #20 tabs 10/03/23 10/03/23 Unknown clavulanate 125 mg tablet Active Medications Generic Name Dose Route Start Last Admin Trade Name Freq PRN Reason Stop Dose Admin Acetaminophen 650 mg 10/04/23 00:00 10/04/23 11:36 Acetaminophen 325 Mg Tab PO 11/03/23 00:00 Not Given Q6H DELVIN Enoxaparin Sodium 40 mg 10/04/23 06:00 10/04/23 04:55 Enoxaparin Inj 40 Mg/0.4 Ml Syr SQ 11/03/23 05:59 Not Given Q24H DELVIN Cefepime HCl 2,000 mg/ Syringe 20 mls @ 5 mls/min 10/04/23 04:00 10/04/23 11:26 IV 11/15/23 03:59 5 mls/min Q8H DELVIN Administration Protocol Vancomycin HCl 1,750 mg/ 535 mls @ 200 mls/hr 10/04/23 08:00 10/04/23 11:34 Sodium Chloride IV 11/15/23 07:59 Infused Q12H DELVIN Infusion Lactated Ringer's 1,000 mls @ 15 mls/hr 10/04/23 14:30 10/04/23 14:23 Lr IV 11/03/23 14:29 15 mls/hr .Q24H DELVIN Administration Insulin Aspart 0 units 10/04/23 06:00 10/04/23 11:36 Insulin Aspart Per Unit Charge SC 11/03/23 05:59 Not Given Q6 DELVIN Insulin Glargine 10 units 10/04/23 09:00 10/04/23 08:09 Lantus Per Unit Charge SQ 11/03/23 08:59 Not Given BID DELVIN Labetalol HCl 200 mg 10/03/23 23:19 10/04/23 08:12 Labetalol Hcl 200 Mg Tab PO 11/02/23 23:18 200 mg BID DELVIN Administration Prednisone 5 mg 10/04/23 09:00 10/04/23 08:12 Prednisone 5 Mg Tab PO 11/03/23 08:59 5 mg DAILY DELVIN Administration Pyridostigmine [place] 60 mg 10/04/23 09:00 10/04/23 08:12 Pyridostigmine [place] 60 Mg Tab PO 11/03/23 08:59 60 mg QAM DELVIN Administration NPO Date Last Intake of Fluids: 10/03/23 Time Last Intake of Fluids: 20:00 Date Last Intake of Solids: 10/02/23 Time Last Intake of Solids: 18:00 Past Medical History Medical History Diabetes mellitus type 2, uncontrolled Abnormal liver function test Cutaneous candidiasis Dysarthria Dyslipidemia Myasthenia gravis (~07/2018) Paresthesia Transient ischemic attack Venous insufficiency Vertebrobasilar artery insufficiency Vitamin D deficiency Past Family History Family History Father Renal failure Mother Rheumatoid arthritis Hypertension Breast cancer Denies family history of Colon cancer Ovarian cancer Prostate cancer Myocardial infarction Past Surgical History Surgical History No significant past surgical history Social History Smoking Status: Never smoker Do You Dip or Chew Tobacco: No Hx Alcohol Use: No Hx Substance Use: No substance use type: does not use Physical Exam Vital Signs Last Vital Signs Temp 97.9 F 10/04/23 14:07 Pulse 85 10/04/23 14:07 Resp 18 10/04/23 14:07 BP 170/95 H 10/04/23 14:07 Pulse Ox 97 10/04/23 14:07 O2 Del Method Room Air 10/04/23 14:07 Testing Laboratory Results 10/04/23 05:47 10/04/23 05:47 PT 11.9 Seconds (9.0-12.0) 10/04/23 05:47 INR 1.1 (0.9-1.1) 10/04/23 05:47 APTT 30 Seconds (21-31) 10/03/23 16:38 Hemoglobin A1c 7.0 % (4.5-5.6) H 10/04/23 05:47 10/03/23 19:50 Gram Stain - Final Toe,Right Great Aerobic and Anaerobic Culture - Preliminary Gram negative bacilli Group C Beta Strep 10/04/23 10/04/23 12:14 05:49 POC Glucose 129 H 115 H
[2023-10-04] MEDS ORDERED: fentaNYL citrate PF 100 MCG/2 ML VIAL ONE (15:29)
[2023-10-04] MEDS ORDERED: PROPOFOL IV EMULSION 10 MG/ML 20 ML VIAL IV ONE ×2 (15:29→16:58)
[2023-10-04] MEDS ORDERED: MIDAZOLAM HCL 1 MG/ML 2ML VIAL ONE ×2 (15:29→16:27)
--- NOTE | 2023-10-04 15:30 | Hospitalist Progress Note ---
Date of Service October 04, 2023 Assessment & Plan (1) Osteomyelitis of right foot: Plan: -Presented to the ED for progression of right first toes infection -Xray of the right foot shows OM of the right great toe -RLE venous doppler negative for DVT - RLE arterial doppler: no high grade stenosis - Foot MRI: osteomylitis of great toe, medial ulcer measuring 1.8cm - Continue with Vancomycin and cefepime (first day 10/02) - Will need ID consult (logistically will likely not be able to be completed until Saturday give late afternoon OR) -Wound culture (ER): Gram negative bacili, Group C strep - Blood Cultures pending -Orthopedics consulted - Plan for OR today - Nonweightbearing on toe - will liekly need 6 weeks of IV abx AM CBC. BMP (2) MG, bulbar (myasthenia gravis): Plan: -On 5 mg PO prednisone daily and Pyridostigmine -Will continue prednisone for now Discussed with my attending, Dr. Khan, will not start stress dose steroids at this time. (3) Diabetes mellitus type 2, uncontrolled: Plan: -Monitor BSG ACHS, goal is 110-160 -Hold metformin -Start 10 units lantus BID and CF 50 ACHS (4) Hypertension, benign essential, goal below 140/90: Plan: -Stable -Continue labetalol Plan Dispo: continued inpatient stay DVT proh: chemical proh held with plan for OR Admission and Anticipated Discharge Date Admission Date: October 03, 2023 Subjective Patient seen this morning prior to surgery. Discussed insulin inpatient - states he refused because he thought he was also still getting Metformin. Willing to take going forward. No other acute complaints. Review of Systems Review of Systems: All systems reviewed & are unremarkable except as noted in Subjective Physical Exam Physical Exam: General: NAD, VS as above Resp: normal respiratory effort, lungs clear to auscultation CV: RRR, no murmur, Abd: normal bowel sounds, non tender, no hepatosplenomegaly Extremities: Moves all extremities, dressing not removed from foot Neuro: A&O x3, Results & Data Results & Data Vital Signs (Past 12 Hours) Vital Signs Temp Pulse Resp BP Pulse Ox O2 Del Method 10/04/23 14:07 36.6 C 85 18 170/95 H 97 Room Air 10/04/23 08:47 36.6 C 90 18 167/92 H 97 Room Air Laboratory Results CBC, chemistry, WC and blood cultures reviewed Diagnostic Findings LE arterial doppler reviewed PG Care Time/CCT Total # of Minutes Spent Total Time Spent with Patient: Total time spent is greater than 50% in coordination of care (as documented) at patient's floor/unit and/or counseling patient: Coding Level of Care Code 22410 SUB INP/OBS CARE 3/50MIN Diagnoses Osteomyelitis of right foot M86.9 MG, bulbar (myasthenia gravis) G70.00 Diabetes mellitus type 2, uncontrolled E11.65 Hypertension, benign essential, goal below 140/90 I10
[2023-10-04] MEDS ORDERED: ROCURONIUM BROMIDE 10 MG/ML 5 ML VIAL IV ONE (16:58)
[2023-10-04] MEDS ORDERED: LABETALOL HCL IV 5 MG/ML 20ML IV ONE ×3 (17:00)
[2023-10-04] MEDS ORDERED: SUGAMMADEX SODIUM 200 MG/2 ML VIAL IV ONE (17:10)
[2023-10-04] MEDS: LIDOCAINE 1%/EPINEPHRINE 1:100,000 20 ML VIAL ONE (17:25)
[2023-10-04] MEDS: BUPIVACAINE 0.5 % 5 MG/1 ML MPF 30ML VIAL ONE (17:25)
--- NOTE | 2023-10-04 17:32 | Post Operative Brief Note ---
Immediate Post Op Note v1 Date of Surgery October 04, 2023 Pre & Post Diagnosis Operation Date: 10/04/23 12:10 Pre-Op Diagnosis: Osteomyelitis of right first toe Post-Op Diagnosis: Osteomyelitis of right first toe I identified the patient and participated in the time-out.: Yes Procedure Operation Date: 10/04/23 12:10 Actual Procedures p Right Great Toe Amputation(Right) - Horacio Lao MD Surgeon Horacio Lao MD Chef Teacher A MD Alvarez Estimated Blood Loss 20 Findings Consistent with Post-Op Diagnosis Fluids 700 cc Specimens Right Great toe C&S deep Right Great toe pathology Anesthesia Type General Complications none
--- NOTE | 2023-10-04 17:35 | Operative Report ---
Post Operative Report Pre & Post Diagnosis Operation Date: 10/04/23 12:10 Pre-Op Diagnosis: Osteomyelitis of right Great toe Post-Op Diagnosis: Osteomyelitis of right Great toe I identified the patient and participated in the time-out.: Yes Procedure Operation Date: 10/04/23 12:10 Actual Procedures p Right Great Toe Amputation(Right) - Horacio Lao MD Surgeon Horacio Lao MD Sales Support Assistant Kandace Pino MD Estimated Blood Loss 20 Findings See Below Right great toe ulcer, large necrotic, silver dollar sized, with purulent drainage. Able to place culture swab into bone. 1st MCP joint without purulence, articular cartilage intact. After debridement, remaining soft tissue red beefy with bleeding surfaces. Fluids 700 cc Specimens Right Great toe C&S deep Right Great toe pathology Anesthesia Type General Complications none Indications The patient is a 52 year old male with right great toe open ulcer with underlying osteomyelitis. The patient understands the risks of surgery, which include but are not limited to: bleeding, infection, re-operation, damage to nerves and arteries, and continued pain. The patient understands all of these instructions and explanations, all of their questions have been satisfactorily addressed. The patient has elected to proceed with surgery and the informed consent was signed. Description of Procedure The patient was taken to the Operating Room and placed in the supine position on the operating table. After a multidisciplinary time-out was performed identifying my initials on the right lower leg as the correct and operative limb. The patient was continued on his antibiotic regime. The right leg was prepped and draped in the usual Orthopaedic sterile fashion. After the planned incision and a Ring block of the Deep Peroneal, Saphenous and posterior Tibial Nerves were injected with a 50:50 mixture of 1% lidocaine and 0.5 % Marcaine with epi for a total of 25 cc., the patient was still moving his toes and leg and anesthesia converted to a general. A culture was obtained through the large silver dollar sized necrotic ulcer and penetrated easily into the bone. A racquet incision was made over the 1st MTPJ, preserving as much good skin as possible. The right great toe was disarticulated at the 1st MTPJ and completely freed and excised and sent to pathology. The FHL tendon was secured to the EHL with antibiotic impregnated 2-0 Vicryl suture. The skin and soft tissue were debrided with curette and rongeur. The The wound was copiously irrigated.The remaining soft tissue was red beefy, with bleeding surfaces. Hemostasis was maintained throughout. The remaining articular cartilage was normal. The skin was closed with 3-0 Nylon using horizontal and verticle mattress technique. The incision was covered with Xeroform, 4x4's, ABDs, sterile cast padding and an PAULINA. The sponge and needle counts were correct. POSTOPERATIVE INSTRUCTIONS: The patient will be weightbearing as tolerated through their heel. The bandage may be removed and replaced in 2 days. The patient was re-admitted to the hospitalist service. They will continue IV antibiotics. ID consult was obtained for antibiotic coverage. He will follow-up in the office in 1 week. I attest to the content of the Intraoperative Record and any orders documented therein. Any exceptions are noted below.
[2023-10-04] MEDS ORDERED: ONDANSETRON INJ 2 MG/ML 2 ML VIAL ONE (18:02)
--- NOTE | 2023-10-04 18:28 | Anesthesiology Progress Note ---
Date of Service October 04, 2023 Anesthesia Post Procedure Vital Signs Vital Signs: Temp Pulse Pulse Pulse Resp BP BP 10/04/23 18:25 88 12 149/83 H 10/04/23 18:15 98.1 F 91 H 16 155/82 H 10/04/23 18:05 96 H 15 144/89 H 10/04/23 17:55 97.2 F L 93 H 16 154/92 H 10/04/23 14:07 97.9 F 85 18 170/95 H 10/04/23 08:47 97.9 F 90 18 167/92 H 10/04/23 00:00 10/04/23 00:00 97.7 F 86 20 164/91 H 10/03/23 23:19 97.7 F 86 20 164/91 H 10/03/23 23:07 95 H 20 186/100 H 10/03/23 21:30 96 H 20 154/80 H 10/03/23 21:00 95 H 20 161/85 H 10/03/23 19:45 102 H 10/03/23 19:45 99.3 F 103 H 20 BP Pulse Ox O2 Del Method 10/04/23 18:25 94 Room Air 10/04/23 18:15 93 Room Air 10/04/23 18:05 96 Room Air 10/04/23 17:55 97 Room Air 10/04/23 14:07 97 Room Air 10/04/23 08:47 97 Room Air 10/04/23 00:00 Room Air 10/04/23 00:00 97 Room Air 10/03/23 23:19 97 Room Air 10/03/23 23:07 96 Room Air 10/03/23 21:30 97 10/03/23 21:00 96 10/03/23 19:45 10/03/23 19:45 166/98 H 97 Room Air Pain Intensity Right Great Toe: Pain Intensity: 2 Transfer of Care Handoff Completed per policy Notes Mental Status: alert / awake / arousable and participated in evaluation Patient Amnestic to Procedure: Yes Nausea / Vomiting: adequately controlled Pain: adequately controlled Airway Patency, RR, SpO2: stable & adequate BP & HR: stable & adequate Hydration State: stable & adequate Anesthetic Complications: no major complications apparent and Pt Satisfied with anesthetic care
--- NOTE | 2023-10-04 18:37 | Operative Report ---
Post Operative Report Pre & Post Diagnosis Operation Date: 10/04/23 12:10 Pre-Op Diagnosis: Osteomyelitis of right first toe Post-Op Diagnosis: Osteomyelitis of right first toe I identified the patient and participated in the time-out.: Yes Procedure Operation Date: 10/04/23 12:10 Actual Procedures p Right Great Toe Amputation(Right) - Horacio Lao MD Surgeon Horacio Lao MD Industrial Custodian A MD Alvarez Estimated Blood Loss 20 Findings Consistent with Post-Op Diagnosis Same as postoperative diagnosis. Specimens None Description of Procedure Please see detailed operative note. I attest to the content of the Intraoperative Record and any orders documented therein. Any exceptions are noted below.
[2023-10-05] MEDS: MoRPHine SULFATE 2 MG/ML CARP IV PRN (04:40)
[2023-10-05 06:21] LABS: Albumin Level 3.4 gm/dl (3.4-5.0); BUN Creatinine Ratio 15.3 (10-20); Bilirubin,Total 0.8 mg/dl (0.2-1.0); Calcium 8.7 mg/dl (8.6-10.3); Creatinine Clr Calc Pharmacy 144.7 ml/min; Est GFR (African American) 116.9 ml/min; Est GFR (Non-African American) 100.9 ml/min; Globulin 3.5 gm/dl (2.5-4.0); Potassium 4.1 mmol/L (3.5-5.1); Total Protein 6.9 gm/dl (6.0-8.3)
[2023-10-05 06:30] LABS: Basophils # (auto) 0.08 K/uL (0.00-0.20); Basophils % (auto) 1.1 %; Eosinophils # (auto) 0.12 K/uL (0.00-0.50); Eosinophils % (auto) 1.6 %; Hematocrit (blood only) 32.3 % (42.0-52.0); Hemoglobin 10.7 g/dl (14.0-18.0); Immature Granulocytes # (auto) 0.02 K/uL (0.01-0.20); Immature Granulocytes % (auto) 0.3 %; Lymphocytes # (auto) 1.83 K/uL (1.20-3.40); Lymphocytes % (auto) 24.8 %; Mean Corpuscular Hemoglobin 28.1 pg (25.0-34.0); Mean Corpuscular Hgb Conc 33.1 g/dL (32.0-36.0); Mean Corpuscular Volume 84.8 fL (80.0-100.0); Mean Platelet Volume 9.3 fL (9.4-12.4); Monocytes # (auto) 0.39 K/uL (0.11-0.59); Monocytes % (auto) 5.3 %; Neutrophils # (auto) 4.93 K/uL (1.40-6.50); Neutrophils % (auto) 66.9 %; Platelet Count 394 K/uL (130-400); RDW Coefficient of Variation 12.2 % (11.5-14.5); RDW Standard Deviation 37.2 fL (36.4-46.3); Red Blood Count 3.81 M/uL (4.70-6.10); White Blood Count 7.37 K/ul (4.8-10.8)
[2023-10-05] MEDS: VANCOMYCIN LEVEL SCH (08:15)
[2023-10-05] MEDS: INSULIN ASPART PER UNIT CHARGE SC SCH (08:17)
--- NOTE | 2023-10-05 09:12 | Orthopedic Progress Note ---
Date of Service October 05, 2023 Assessment & Plan (1) Osteomyelitis of right foot: Plan: POD #1 s/p Right great toe amputation, due to osteomyelitis, doing as well as expected. Resume diet. WBAT through heel. OOB to chair. Continue pain control. Continue to follow Micro. DVT prophylaxis: TEDs 3 weeks, SCD's while in hospital. Medicinal per primary service PT/OT. D/C planning. Continue IV antibiotics, awaiting ID input. Continue care per primary service. Will continue to follow in hospital and should follow up in office next week if dischaged. Present on Admission?: Yes (2) Non-healing open wound of toe: Plan: See above Present on Admission?: Yes Admission and Anticipated Discharge Date Admission Date: October 03, 2023 Subjective Right foot pain. Physical Exam Physical Exam: RLE: Dressing clean, dry, intact. Remaining toes wiggling, BCR < 2 sec. Results & Data Vital Signs (Past 12 Hours) Vital Signs Temp Pulse Pulse Resp BP Pulse Ox O2 Del Method 10/05/23 07:45 36.7 C 88 16 161/91 H 97 Room Air 10/05/23 04:47 36.8 C 81 18 155/81 H 96 Room Air 10/04/23 23:53 36.9 C 95 H 20 165/78 H 96 Room Air 10/04/23 22:08 Room Air 10/04/23 21:42 36.8 C 88 18 161/82 H 95 Room Air Laboratory Results Laboratory Results WBC 7.37 K/ul (4.8-10.8) 10/05/23 05:35 RBC 3.81 M/uL (4.70-6.10) L 10/05/23 05:35 Hgb 10.7 g/dl (14.0-18.0) L 10/05/23 05:35 Hct 32.3 % (42.0-52.0) L 10/05/23 05:35 MCV 84.8 fL (80.0-100.0) 10/05/23 05:35 MCH 28.1 pg (25.0-34.0) 10/05/23 05:35 MCHC 33.1 g/dL (32.0-36.0) 10/05/23 05:35 RDW Std Deviation 37.2 fL (36.4-46.3) 10/05/23 05:35 RDW Coeff of Berna 12.2 % (11.5-14.5) 10/05/23 05:35 Plt Count 394 K/uL (130-400) 10/05/23 05:35 MPV 9.3 fL (9.4-12.4) L 10/05/23 05:35 Immature Gran % (Auto) 0.3 % 10/05/23 05:35 Neut % (Auto) 66.9 % 10/05/23 05:35 Lymph % (Auto) 24.8 % 10/05/23 05:35 Anson % (Auto) 5.3 % 10/05/23 05:35 Eos % (Auto) 1.6 % 10/05/23 05:35 Baso % (Auto) 1.1 % 10/05/23 05:35 Neut # (Auto) 4.93 K/uL (1.40-6.50) 10/05/23 05:35 Lymph # (Auto) 1.83 K/uL (1.20-3.40) 10/05/23 05:35 Anson # (Auto) 0.39 K/uL (0.11-0.59) 10/05/23 05:35 Eos # (Auto) 0.12 K/uL (0.00-0.50) 10/05/23 05:35 Baso # (Auto) 0.08 K/uL (0.00-0.20) 10/05/23 05:35 Immature Gran # (Auto) 0.02 K/uL (0.01-0.20) 10/05/23 05:35 PT 11.9 Seconds (9.0-12.0) 10/04/23 05:47 INR 1.1 (0.9-1.1) 10/04/23 05:47 APTT 30 Seconds (21-31) 10/03/23 16:38 PTT Ratio 1.1 10/03/23 16:38 Sodium 141 mmol/L (136-145) 10/05/23 05:35 Potassium 4.1 mmol/L (3.5-5.1) 10/05/23 05:35 Chloride 107 mmol/L (98-107) 10/05/23 05:35 Carbon Dioxide 27 mmol/L (21-32) 10/05/23 05:35 Anion Gap 7 (3-11) 10/05/23 05:35 BUN 13 mg/dl (6-23) 10/05/23 05:35 Creatinine 0.85 mg/dl (0.6-1.4) 10/05/23 05:35 Est Cr Clr Drug Dosing 144.7 ml/min 10/05/23 05:35 Est GFR ( Amer) 116.9 ml/min 10/05/23 05:35 Est GFR (Non-Af Amer) 100.9 ml/min 10/05/23 05:35 BUN/Creatinine Ratio 15.3 (10-20) 10/05/23 05:35 Glucose 103 mg/dl (70-99(Fasting)) H 10/05/23 05:35 POC Glucose 109 mg/dl (70-99) H 10/05/23 07:44 Estimat Average Glucose 154 mg/dl 10/04/23 05:47 Hemoglobin A1c 7.0 % (4.5-5.6) H 10/04/23 05:47 Lactate 1.4 mmol/L (0.4-2.0) 10/03/23 16:38 Calcium 8.7 mg/dl (8.6-10.3) 10/05/23 05:35 Magnesium 2.0 mg/dl (1.7-2.4) 10/04/23 05:47 Total Bilirubin 0.8 mg/dl (0.2-1.0) 10/05/23 05:35 AST 13 U/L (13-39) 10/05/23 05:35 ALT 12 U/L (7-52) 10/05/23 05:35 Alkaline Phosphatase 43 U/L (34-104) 10/05/23 05:35 Total Protein 6.9 gm/dl (6.0-8.3) 10/05/23 05:35 Albumin 3.4 gm/dl (3.4-5.0) 10/05/23 05:35 Globulin 3.5 gm/dl (2.5-4.0) 10/05/23 05:35 Albumin/Globulin Ratio 1.0 (0.9-2) 10/05/23 05:35 Random Vancomycin 15.6 mcg/ml (10-20) 10/05/23 05:35 Source: Toe,Right Great OV Order: Ordered: Aer/Irma Cult/Sm Comments: Comment 1. Right Great Toe Deep Procedure Result Verified Site Gram Stain Final 10/04/23-2043 Gram Stain Result Rare WBCs Seen Rare Gram Positive Cocci Aero/Irma Cult PENDING Impressions Foot X-Ray 10/03/23 15:30 RIGHT FOOT 3 VIEWS CLINICAL HISTORY: Infection. FINDINGS: 3 views of the right foot are correlated with radiographs of the first toe dated 01/30/2021. The skeletal structures are osteopenic. There is severe erosive/destructive change seen involving the medial cortex throughout the first distal phalanx with bony fragmentation and displaced fragments. No additional similar foci of destructive change are identified throughout the remainder of the foot. There is significant soft tissue edema in the first toe with soft tissue gas. Mild arthritic change is seen throughout the foot, greatest at the first metatarsophalangeal joint. There are small dorsal and large plantar heel spurs. Atherosclerotic calcification is observed in the regional arteries. IMPRESSION: 1. There is osteomyelitis of the first distal phalanx as above with significant destructive change, overlying soft tissue edema, and soft tissue gas. 2. No additional similar appearing foci of destructive bony change are seen throughout the remainder of the foot. Electronically signed by: Peng Alexandre M.D. 10/03/2023 5:14 PM Venous Doppler Study 10/03/23 15:30 Exam(s): US VENOUS RIGHT LOWER EXTREMITY EXAM: US Duplex Right Lower Extremity Veins CLINICAL HISTORY: Reason for exam: Right calf pain. TECHNIQUE: Real-time duplex ultrasound scan of the right lower extremity veins integrating B-mode two-dimensional vascular structure, Doppler spectral analysis, color flow Doppler imaging and compression. COMPARISON: No relevant prior studies available. FINDINGS: Deep veins: Unremarkable. No DVT in the visualized common femoral, femoral, proximal deep femoral or popliteal veins. The veins demonstrate normal color flow, are normally compressible, with normal phasic flow and/or augmentation response. Soft tissues: No acute findings. No popliteal cyst. Lymph nodes: Prominent right inguinal lymph nodes within normal fatty hilum favored to be reactive. IMPRESSION: No evidence of right lower extremity deep venous thrombosis. Electronically signed by: Mj Modi M.D. 10/03/23 21:08 PM Foot MRI 10/03/23 21:59 Exam(s): MRI RIGHT FOOT Without Contrast EXAM: MR Right Lower Extremity Without Intravenous Contrast, Foot CLINICAL HISTORY: Reason for exam: OM right first toe, monitor for progression. TECHNIQUE: Multiplanar magnetic resonance images of the right foot without intravenous contrast. COMPARISON: No relevant prior studies available. FINDINGS: Positive for osteomyelitis of the great toe, consisting of edema and marrow infiltration of the great toe proximal and distal phalanges. Ulceration along the medial aspect of the great toe measured approximately 1.8 cm and is 1 cm deep. No remaining areas of osteomyelitis. No fluid collection or abscess. Moderate dorsal subcutaneous edema along the lateral aspect of the midfoot. No acute fracture. IMPRESSION: Positive for osteomyelitis of the great toe, with medial ulcer measuring 1.8 cm. No fluid collection or abscess. Electronically signed by: Kash Arthur MD 10/04/23 00:27 AM Duplex Scan Lower Extremity Artery 10/04/23 00:00 ULTRASOUND RIGHT LOWER EXTREMITY ARTERIAL CLINICAL HISTORY: Diabetic foot wound. COMPARISON STUDY: No priors. TECHNIQUE: Real-time grayscale and color Doppler sonography of the arteries of the right lower extremity is performed from the inguinal crease to the foot. Ankle-brachial indices were not assessed due to right lower extremity cellulitis and pain. FINDINGS: Atherosclerotic plaque and irregularity is seen throughout the arteries of the right lower extremity. There are triphasic waveforms in the common femoral artery with velocities measuring up to 113 cm/s. The profundus femoris artery is patent with velocities measuring up to 55 cm per second. There are triphasic arterial waveforms throughout the superficial, femoral and popliteal arteries. Velocities in the superficial femoral artery measure up to 111 cm/s and velocities in the popliteal artery measure up to 101 cm/s. Normal arterial waveforms are maintained throughout the calf vessels. There is three- vessel runoff to the foot. Velocities in the calf arteries measure up to 133 cm/s. The dorsalis pedis artery is patent with velocities measure up to 161 cm second. IMPRESSION: 1. There is no sonographic evidence of high-grade stenosis or focal vessel cut off throughout the arteries of the right lower extremity. 2. Ankle brachial disease were not assessed due to lower extremity cellulitis and pain. Dictated: 10/04/2023 8:57 AM Transcribed: 10/04/2023 9:38 AM Aly [id number] [email or web address] Electronically signed by: Peng Alexandre M.D. 10/04/2023 11:12 AM
--- NOTE | 2023-10-05 11:22 | Hospitalist Progress Note ---
Date of Service October 05, 2023 Assessment & Plan (1) Osteomyelitis of right foot: Plan: Status post amputation of the right great toe on October 03. Postoperative day #1. Appreciate orthopedic consultation and management. RLE venous doppler negative for DVT . RLE arterial doppler: no high grade stenosis Gram-negative bacilli and beta strep isolated prior to surgery. Vancomycin has been discontinued. He remains on cefepime, day 3. I question whether he needs any antibiotics postoperatively at all at this point. ID recommendations pending (2) MG, bulbar (myasthenia gravis): Plan: Stable. Continue current medical management. He is prednisone dependent (3) Diabetes mellitus type 2, uncontrolled: Plan: ADA diet. Sliding scale insulin coverage as needed. Will discontinue Lantus and restart metformin. (4) Hypertension, benign essential, goal below 140/90: Plan: Stable. Continue current medical management Plan Hopeful discharge to home soon Admission and Anticipated Discharge Date Admission Date: October 03, 2023 Subjective Alert and oriented. Postoperative day #1 after amputation of right great toe. Toe cultures before surgery revealed gram-negative bacilli and beta strep. Blood cultures are negative. Vancomycin has been discontinued. He remains on cefepime. Infectious disease consultation is pending. I question whether he needs any antibiotics at all at this point. Will await infectious disease recommendations. Blood cultures are negative. Review of Systems 2 Review of Systems: Constitutional-no fever or chills ENT-no blurred vision, no double vision, no epistaxis, no sore throat Respiratory-no cough, no wheezing, no shortness of breath Cardiac-no palpitations, no chest pain, no syncope GI-no nausea, vomiting, diarrhea, melena, hematochezia -no urinary retention, no urinary incontinence, no dysuria, no hematuria Musculoskeletal-mild postoperative discomfort at the right foot surgical site as expected Skin-no bruising, no rashes, no pruritus Neuro-no isolated weakness, no paresthesia Psych-no depression, no anxiety Physical Exam 2 Physical Exam: General-alert and oriented x3, no fever, no chills HEENT-head atraumatic and normocephalic, pupils equal and reactive to light, extraocular muscles intact Neck-no lymphadenopathy or thyromegaly, trachea midline Chest-clear to auscultation. No rales, wheezing or rhonchi Cardiac-regular rate and rhythm, normal S1 and S2 Abdomen-normal bowel sounds, no hepatosplenomegaly Extremities-no cyanosis, clubbing, or edema. Right forefoot heavily bandaged Neuro-cranial nerves II through XII intact, motor and sensory function within normal limits, strength symmetrical, no focal deficits Psych-normal affect, normal mood Results & Data Results & Data Vital Signs (Past 12 Hours) Vital Signs Temp Pulse Pulse Resp BP Pulse Ox O2 Del Method 10/05/23 07:45 36.7 C 88 16 161/91 H 97 Room Air 10/05/23 04:47 36.8 C 81 18 155/81 H 96 Room Air 10/04/23 23:53 36.9 C 95 H 20 165/78 H 96 Room Air Laboratory Results 10/05/23 05:35 10/05/23 05:35 PG Care Time/CCT Total # of Minutes Spent Total Time Spent with Patient: Total time spent is greater than 50% in coordination of care (as documented) at patient's floor/unit and/or counseling patient: Coding Level of Care Code 22284 SUB INP/OBS CARE 3/50MIN Diagnoses Osteomyelitis of right foot M86.9 MG, bulbar (myasthenia gravis) G70.00 Diabetes mellitus type 2, uncontrolled E11.65 Hypertension, benign essential, goal below 140/90 I10
[2023-10-05] MEDS: metFORMIN HCL 500 MG TAB PO SCH (12:28)
[2023-10-06 06:15] LABS: Basophils % (auto) 1.4 %; Eosinophils # (auto) 0.15 K/uL (0.00-0.50); Eosinophils % (auto) 2.1 %; Hematocrit (blood only) 35.4 % (42.0-52.0); Hemoglobin 11.7 g/dl (14.0-18.0); Immature Granulocytes # (auto) 0.03 K/uL (0.01-0.20); Immature Granulocytes % (auto) 0.4 %; Lymphocytes % (auto) 28.4 %; Mean Corpuscular Hgb Conc 33.1 g/dL (32.0-36.0); Mean Corpuscular Volume 84.7 fL (80.0-100.0); Mean Platelet Volume 9.1 fL (9.4-12.4); Monocytes # (auto) 0.36 K/uL (0.11-0.59); Monocytes % (auto) 5.1 %; Neutrophils # (auto) 4.41 K/uL (1.40-6.50); Neutrophils % (auto) 62.6 %; Platelet Count 426 K/uL (130-400); RDW Standard Deviation 37.2 fL (36.4-46.3); Red Blood Count 4.18 M/uL (4.70-6.10); White Blood Count 7.05 K/ul (4.8-10.8)
[2023-10-06 06:35] LABS: BUN Creatinine Ratio 13.7 (10-20); Calcium 8.9 mg/dl (8.6-10.3); Creatinine Clr Calc Pharmacy 167.4 ml/min; Est GFR (African American) 124.5 ml/min; Est GFR (Non-African American) 107.4 ml/min; Potassium 3.7 mmol/L (3.5-5.1)
--- NOTE | 2023-10-06 09:25 | Orthopedic Progress Note ---
Date of Service October 06, 2023 Assessment & Plan (1) Osteomyelitis of right foot: Plan: POD #2 s/p Right great toe amputation, due to osteomyelitis, doing as well as expected. Resume diet. WBAT through heel. OOB to chair. Continue pain control. Continue to follow Micro. Obtain ESR & CRP tomorrow DVT prophylaxis: TEDs 3 weeks, SCD's while in hospital. Medicinal per primary service PT/OT. D/C planning. Continue IV antibiotics, awaiting ID input. Continue care per primary service. Will continue to follow in hospital and should follow up in office next week if discharged. (2) Non-healing open wound of toe: Plan: See above Admission and Anticipated Discharge Date Admission Date: October 03, 2023 Subjective Not having much pain. Physical Exam Physical Exam: RLE: Incision clean, dry, intact. Remaining toes: wiggling, BCR < 2 sec, sensation intact to light touch. Results & Data Vital Signs (Past 12 Hours) Vital Signs Temp Pulse Resp BP Pulse Ox O2 Del Method 10/06/23 07:51 36.5 C 85 15 176/80 H 95 Room Air Laboratory Results pec: [id number] Collected: 10/03/23-UNK Received: 10/03/23-[address]: Mary Matute MD Source: Toe,Right Great OV Order: Ordered: Surf Wnd Cul/Sm Procedure Result Verified Site Gram Stain Final 10/03/23-2239 Gram Stain Result Moderate Gram Negative Bacilli Few Gram Positive Cocci Many WBCs Seen Surface Wound Culture Preliminary 10/06/23-0846 Organism 1 Proteus vulgaris Quantity Moderate Sens Sensitivities to Follow +MixWound Plus Moderate Counts of Probable Skin Dania Organism 2 Group C Beta Strep Quantity Moderate Sens Sensitivities to Follow P vulgaris Grp.C Strp RX M.I.C. RX M.I.C. --- --------- --- --------- Amox/Clav S <=8/4 Ampicillin S <=0.06 Amp/Sul S <=8/4 Azithromycin S <=0.25 Cefepime S <=2 S <=0.25 Cefotaxime S <=0.25 Ceftriaxone R >2 S <=0.25 Chloramphenicol S 2 Ciprofloxacin S <=0.25 Clindamycin S <=0.06 Ertapenem S <=0.5 Erythromycin S <=0.06 Gentamicin S <=4 Levofloxacin S <=0.5 Meropenem S <=1 Penicillin S <=0.03 Tobramycin S <=4 Trimeth/Sulfa S <=2/38 Pip/Tazo S <=16 Vancomycin S 0.5 S = SENSITIVE I = INTERMEDIATE R = RESISTANT Name: GERALDO MORAN DOB: 1970 PAGE 1 Printed: 10/06/23 0925 END OF REPORT 10/06/23 10/06/23 10/05/23 Range/Units 07:49 05:46 20:16 WBC 7.05 (4.8-10.8) K/ul RBC 4.18 L (4.70-6.10) M/uL Hgb 11.7 L (14.0-18.0) g/dl Hct 35.4 L (42.0-52.0) % MCV 84.7 (80.0-100.0) fL MCH 28.0 (25.0-34.0) pg MCHC 33.1 (32.0-36.0) g/dL RDW Std Deviation 37.2 (36.4-46.3) fL RDW Coeff of Berna 12.0 (11.5-14.5) % Plt Count 426 H (130-400) K/uL MPV 9.1 L (9.4-12.4) fL Immature Gran % (Auto) 0.4 % Neut % (Auto) 62.6 % Lymph % (Auto) 28.4 % [place] % (Auto) 5.1 % Eos % (Auto) 2.1 % Baso % (Auto) 1.4 % Neut # (Auto) 4.41 (1.40-6.50) K/uL Lymph # (Auto) 2.00 (1.20-3.40) K/uL [place] # (Auto) 0.36 (0.11-0.59) K/uL Eos # (Auto) 0.15 (0.00-0.50) K/uL Baso # (Auto) 0.10 (0.00-0.20) K/uL Immature Gran # (Auto) 0.03 (0.01-0.20) K/uL Sodium 139 (136-145) mmol/L Potassium 3.7 (3.5-5.1) mmol/L Chloride 106 (98-107) mmol/L Carbon Dioxide 29 (21-32) mmol/L Anion Gap 4 (3-11) BUN 10 (6-23) mg/dl Creatinine 0.73 (0.6-1.4) mg/dl Est Cr Clr Drug Dosing 167.4 ml/min Est GFR ( Amer) 124.5 ml/min Est GFR (Non-Af Amer) 107.4 ml/min BUN/Creatinine Ratio 13.7 (10-20) Glucose 105 H (70-99(Fasting)) mg/dl POC Glucose 113 H 131 H (70-99) mg/dl Calcium 8.9 (8.6-10.3) mg/dl 10/05/23 10/05/23 Range/Units 16:58 11:54 WBC (4.8-10.8) K/ul RBC (4.70-6.10) M/uL Hgb (14.0-18.0) g/dl Hct (42.0-52.0) % MCV (80.0-100.0) fL MCH (25.0-34.0) pg MCHC (32.0-36.0) g/dL RDW Std Deviation (36.4-46.3) fL RDW Coeff of Berna (11.5-14.5) % Plt Count (130-400) K/uL MPV (9.4-12.4) fL Immature Gran % (Auto) % Neut % (Auto) % Lymph % (Auto) % [place] % (Auto) % Eos % (Auto) % Baso % (Auto) % Neut # (Auto) (1.40-6.50) K/uL Lymph # (Auto) (1.20-3.40) K/uL [place] # (Auto) (0.11-0.59) K/uL Eos # (Auto) (0.00-0.50) K/uL Baso # (Auto) (0.00-0.20) K/uL Immature Gran # (Auto) (0.01-0.20) K/uL Sodium (136-145) mmol/L Potassium (3.5-5.1) mmol/L Chloride (98-107) mmol/L Carbon Dioxide (21-32) mmol/L Anion Gap (3-11) BUN (6-23) mg/dl Creatinine (0.6-1.4) mg/dl Est Cr Clr Drug Dosing ml/min Est GFR ( Amer) ml/min Est GFR (Non-Af Amer) ml/min BUN/Creatinine Ratio (10-20) Glucose (70-99(Fasting)) mg/dl POC Glucose 112 H 139 H (70-99) mg/dl Calcium (8.6-10.3) mg/dl
[2023-10-06] MEDS: traMADol HCL 50 MG TABLET PO PRN (11:53)
--- NOTE | 2023-10-06 16:07 | Hospitalist Progress Note ---
Date of Service October 06, 2023 Assessment & Plan (1) Osteomyelitis of right foot: Plan: Status post amputation of the right great toe on October 03. Postoperative day #2. Appreciate orthopedic consultation and management. RLE venous doppler negative for DVT . RLE arterial doppler: no high grade stenosis Proteus and beta strep isolated prior to surgery. Vancomycin has been discontinued. He remains on cefepime, day 4. Probable discharge to home on Augmentin. Await infectious disease consultation and recommendations. (2) MG, bulbar (myasthenia gravis): Plan: Stable. Continue current medical management. He is prednisone dependent (3) Diabetes mellitus type 2, uncontrolled: Plan: ADA diet. Sliding scale insulin coverage as needed. Metformin has been restarted and Lantus discontinued on October 04. Glucose 105 this morning, October 05. (4) Hypertension, benign essential, goal below 140/90: Plan: Stable. Continue current medical management Plan Home tomorrow, October 06, probably on oral Augmentin per orthopedic wishes. Admission and Anticipated Discharge Date Admission Date: October 03, 2023 Subjective Alert and oriented. Postoperative day 2 after amputation of the right first toe due to presence of osteomyelitis. Toe cultures preoperatively grew Proteus and beta strep. He is currently on cefepime. He probably will be discharged on oral Augmentin 875 mg twice a day, the duration determined by orthopedics. Right lower extremity venous Doppler negative for DVT and right lower extremity arterial Doppler negative for critical stenosis. Blood cultures remain negative. Infectious disease consultation will probably be completed tomorrow before discharge, October 06 Review of Systems 2 Review of Systems: Constitutional-no fever or chills ENT-no blurred vision, no double vision, no epistaxis, no sore throat Respiratory-no cough, no wheezing, no shortness of breath Cardiac-no palpitations, no chest pain, no syncope GI-no nausea, vomiting, diarrhea, melena, hematochezia -no urinary retention, no urinary incontinence, no dysuria, no hematuria Musculoskeletal-mild postoperative discomfort at the right foot surgical site as expected Skin-no bruising, no rashes, no pruritus Neuro-no isolated weakness, no paresthesia Psych-no depression, no anxiety Physical Exam 2 Physical Exam: General-alert and oriented x3, no fever, no chills HEENT-head atraumatic and normocephalic, pupils equal and reactive to light, extraocular muscles intact Neck-no lymphadenopathy or thyromegaly, trachea midline Chest-clear to auscultation. No rales, wheezing or rhonchi Cardiac-regular rate and rhythm, normal S1 and S2 Abdomen-normal bowel sounds, no hepatosplenomegaly Extremities-no cyanosis, clubbing, or edema. Right forefoot heavily bandaged Neuro-cranial nerves II through XII intact, motor and sensory function within normal limits, strength symmetrical, no focal deficits Psych-normal affect, normal mood Results & Data Results & Data Vital Signs (Past 12 Hours) Vital Signs Temp Pulse Resp BP Pulse Ox O2 Del Method 10/06/23 15:07 36.6 C 83 16 171/96 H 96 Room Air 10/06/23 09:28 Room Air 10/06/23 07:51 36.5 C 85 15 176/80 H 95 Room Air Laboratory Results 10/06/23 05:46 10/06/23 05:46 PG Care Time/CCT Total # of Minutes Spent Total Time Spent with Patient: Total time spent is greater than 50% in coordination of care (as documented) at patient's floor/unit and/or counseling patient: Coding Level of Care Code 84553 SUB INP/OBS CARE 2/35MIN Diagnoses Osteomyelitis of right foot M86.9 MG, bulbar (myasthenia gravis) G70.00 Diabetes mellitus type 2, uncontrolled E11.65 Hypertension, benign essential, goal below 140/90 I10
[2023-10-07 07:36] LABS: Basophils # (auto) 0.09 K/uL (0.00-0.20); Basophils % (auto) 1.3 %; Eosinophils # (auto) 0.23 K/uL (0.00-0.50); Eosinophils % (auto) 3.4 %; Hematocrit (blood only) 33.6 % (42.0-52.0); Hemoglobin 11.4 g/dl (14.0-18.0); Immature Granulocytes # (auto) 0.02 K/uL (0.01-0.20); Immature Granulocytes % (auto) 0.3 %; Lymphocytes # (auto) 2.28 K/uL (1.20-3.40); Lymphocytes % (auto) 34.1 %; Mean Corpuscular Hemoglobin 28.4 pg (25.0-34.0); Mean Corpuscular Hgb Conc 33.9 g/dL (32.0-36.0); Mean Corpuscular Volume 83.6 fL (80.0-100.0); Mean Platelet Volume 9.4 fL (9.4-12.4); Monocytes # (auto) 0.38 K/uL (0.11-0.59); Monocytes % (auto) 5.7 %; Neutrophils # (auto) 3.69 K/uL (1.40-6.50); Neutrophils % (auto) 55.2 %; Platelet Count 436 K/uL (130-400); RDW Coefficient of Variation 12.1 % (11.5-14.5); RDW Standard Deviation 36.9 fL (36.4-46.3); Red Blood Count 4.02 M/uL (4.70-6.10); White Blood Count 6.69 K/ul (4.8-10.8)
[2023-10-07 08:04] LABS: BUN Creatinine Ratio 14.9 (10-20); C Reactive Protein 2.34 mg/dl (0-0.5); Calcium 9.2 mg/dl (8.6-10.3); Creatinine Clr Calc Pharmacy 182.4 ml/min; Est GFR (African American) 128.9 ml/min; Est GFR (Non-African American) 111.3 ml/min; Potassium 3.7 mmol/L (3.5-5.1)
--- NOTE | 2023-10-07 09:37 | Orthopedic Progress Note ---
Date of Service October 07, 2023 Assessment & Plan (1) Osteomyelitis of right foot: Plan: POD #3 s/p Right great toe amputation, due to osteomyelitis, doing as well as expected. Patient will continue to be WBAT through heel OOB as tolerated. As foot was being redressed, Infectious disease consult was beginning and it was requested to leave the dressing down. Nursing present and advised on redressing application Most likely will be d/c on oral medication, augmentin 875 BID, pending Infectious disease recommendations. Continue pain control. Continue to follow Micro. DVT prophylaxis: TEDs 3 weeks, SCD's while in hospital. Medicinal per primary service PT/OT. D/C planning with primary service/case managment Continue care per primary service. Will need a f/u appt in one week in our outpatient office (2) Non-healing open wound of toe: Plan: See above Admission and Anticipated Discharge Date Admission Date: October 03, 2023 Subjective Patient is a 52-year-old male who is known patient of Dr. Lao. He is status post a right great toe amputation due to osteomyelitis postop day 3. He was seen bedside this a.m. He was sleeping comfortably and easily aroused. He states he has mild pain and rates 1/10. He denies any redness or drainage over the foot, fevers, chills, night sweats, nausea or vomiting. He denies any calf pain. He offers no concerns. Review of Systems Review of Systems: please refer to HPI Physical Exam Physical Exam: General: Patient is alert and oriented x 3 no acute distress pleasant Integumentary/muscle skeletal: Dressings is intact and on soiled. This was removed. Incisions are well-approximated with sutures negative for any active bleeding or dressing. There is a small area where there is slight maceration. Negative for any increased erythema. Patient is able to slightly move remaining toes. He is able to actively dorsiflex and plantarflex ankle. His sensation is subjectively diminished over the dorsal and plantar aspect of his foot. Dorsal pedis pulse is 1+. Results & Data Vital Signs (Past 12 Hours) Vital Signs Temp Pulse Resp BP BP Pulse Ox O2 Del Method 10/07/23 07:48 36.5 C 85 16 181/96 H 97 Room Air 10/06/23 23:10 84 174/86 H Laboratory Results 10/07/23 10/07/23 10/06/23 Range/Units 07:45 06:49 20:44 WBC 6.69 (4.8-10.8) K/ul RBC 4.02 L (4.70-6.10) M/uL Hgb 11.4 L (14.0-18.0) g/dl Hct 33.6 L (42.0-52.0) % MCV 83.6 (80.0-100.0) fL MCH 28.4 (25.0-34.0) pg MCHC 33.9 (32.0-36.0) g/dL RDW Std Deviation 36.9 (36.4-46.3) fL RDW Coeff of Berna 12.1 (11.5-14.5) % Plt Count 436 H (130-400) K/uL MPV 9.4 (9.4-12.4) fL Immature Gran % (Auto) 0.3 % Neut % (Auto) 55.2 % Lymph % (Auto) 34.1 % [place] % (Auto) 5.7 % Eos % (Auto) 3.4 % Baso % (Auto) 1.3 % Neut # (Auto) 3.69 (1.40-6.50) K/uL Lymph # (Auto) 2.28 (1.20-3.40) K/uL [place] # (Auto) 0.38 (0.11-0.59) K/uL Eos # (Auto) 0.23 (0.00-0.50) K/uL Baso # (Auto) 0.09 (0.00-0.20) K/uL Immature Gran # (Auto) 0.02 (0.01-0.20) K/uL ESR 62 H (0-20) mm/hr Sodium 138 (136-145) mmol/L Potassium 3.7 (3.5-5.1) mmol/L Chloride 104 (98-107) mmol/L Carbon Dioxide 30 (21-32) mmol/L Anion Gap 4 (3-11) BUN 10 (6-23) mg/dl Creatinine 0.67 (0.6-1.4) mg/dl Est Cr Clr Drug Dosing 182.4 ml/min Est GFR ( Amer) 128.9 ml/min Est GFR (Non-Af Amer) 111.3 ml/min BUN/Creatinine Ratio 14.9 (10-20) Glucose 99 (70-99(Fasting)) mg/dl POC Glucose 107 H 121 H (70-99) mg/dl Calcium 9.2 (8.6-10.3) mg/dl C-Reactive Protein 2.34 H (0-0.5) mg/dl 10/06/23 10/06/23 Range/Units 16:42 11:30 WBC (4.8-10.8) K/ul RBC (4.70-6.10) M/uL Hgb (14.0-18.0) g/dl Hct (42.0-52.0) % MCV (80.0-100.0) fL MCH (25.0-34.0) pg MCHC (32.0-36.0) g/dL RDW Std Deviation (36.4-46.3) fL RDW Coeff of Berna (11.5-14.5) % Plt Count (130-400) K/uL MPV (9.4-12.4) fL Immature Gran % (Auto) % Neut % (Auto) % Lymph % (Auto) % [place] % (Auto) % Eos % (Auto) % Baso % (Auto) % Neut # (Auto) (1.40-6.50) K/uL Lymph # (Auto) (1.20-3.40) K/uL [place] # (Auto) (0.11-0.59) K/uL Eos # (Auto) (0.00-0.50) K/uL Baso # (Auto) (0.00-0.20) K/uL Immature Gran # (Auto) (0.01-0.20) K/uL ESR (0-20) mm/hr Sodium (136-145) mmol/L Potassium (3.5-5.1) mmol/L Chloride (98-107) mmol/L Carbon Dioxide (21-32) mmol/L Anion Gap (3-11) BUN (6-23) mg/dl Creatinine (0.6-1.4) mg/dl Est Cr Clr Drug Dosing ml/min Est GFR ( Amer) ml/min Est GFR (Non-Af Amer) ml/min BUN/Creatinine Ratio (10-20) Glucose (70-99(Fasting)) mg/dl POC Glucose 110 H 129 H (70-99) mg/dl Calcium (8.6-10.3) mg/dl C-Reactive Protein (0-0.5) mg/dl
--- NOTE | 2023-10-07 10:51 | Infectious Disease Consult ---
Date of Consultation October 07, 2023 Assessment & Plan (1) Cellulitis: (2) Osteomyelitis of right foot: (3) Diabetes mellitus type 2, uncontrolled: Plan 52yo M with h/o myasthenia gravis on chronic prednisone 5mg daily, uncontrolled T2DM with recurrent diabetic foot ulcers, TIA, herpes genitalis (on valacyclovir), HTN, HLD, GERD who presented on 10/02 with right foot/toe infection. He has had a diabetic ulcer on the right great toe for ~2 years but had been able to keep it from becoming infected. About 2 weeks prior to admission, he started to develop an infection at the diabetic foot ulcer. He spoke to a family friend who prescribed him Amoxicillin but the infection progressed. He was seen by his PCP on 10/02 who noted redness and swelling up to right calf. He had apparently been taking amoxicillin 500mg bid x 1 day then daily x 4d. On admission, he was afebrile. Initial labs with WBC 11.46, Cr and LFT wnl. XR R foot with osteomyelitis of the first distal phalanx, overlying soft tissue edema, and soft tissue gas. MRI R foot with osteomyelitis of the great toe, with medial ulcer measuring 1.8 cm, no abscess. RLE venous doppler negative for DVT. RLE arterial doppler w/o high-grade stenosis. S/p OR on 10/03 and underwent R great toe amputation (per op note, first MTP joint without purulence, articular cartilage intact, cx were sent from bone at necrotic ulcer). Appears all infected bone was removed since OM was noted in distal phalanx on imaging and toe was amputated at MTPJ. Complete treatment for SSTI. We can use augmentin. Note that he had been taking amoxicillin at home, but was inaccurately dosed. # Right great toe distal phalanx OM s/p amputation of R great toe on 10/03 # h/o T2DM - Martita changed cefepime to augmentin 875mg PO twice daily - would complete 4 more days of abx (through 10/10) for SSTI ID will discontinue active follow up at this time. Please do not hesitate to reconsult the Infectious Diseases service as needed. Kamila King MD [facility], Division of Infectious Diseases [employer]: [phone] Consultation Information Consultation was provided via telemedicine using two-way real-time interactive telecommunication between the patient and the telemedicine provider. For the duration of the visit, the provider was performing the assessment from a different facility than the patient. This includesuse of bluetooth stethoscope forauscultationperformed by the telepresenter that the telemedicine provider can hear if described in the physical exam. [employer] contact information: Please call [facility] Call Center . (Phone Number For Physician Use Only) After establishing a telemedicine visit, patient was: Patient was verified with two unique identifiers, Patient/authorized rep acknowledged consent and understanding and Gave permission to continue telehealth session Time Spent with Patient: Initial => 75 min History of Present Illness Reason for Consultation: right great toe OM Attending Physician: Juve Khan History of Present Illness 52yo M with h/o myasthenia gravis on chronic prednisone 5mg daily, uncontrolled T2DM with recurrent diabetic foot ulcers, TIA, herpes genitalis (on valacyclovir ), HTN, HLD, GERD who presented on 10/02 with right foot/toe infection. He has had a diabetic ulcer on the right great toe for ~2 years but had been able to keep it from becoming infected. About 2 weeks prior to admission, he started to develop an infection at the diabetic foot ulcer. He spoke to a family friend who prescribed him Amoxicillin but the infection progressed. He was seen by his PCP on 10/02 who noted redness and swelling up to right calf. He had apparently been taking amoxicillin 500mg bid x 1 day then daily x 4d. He felt feverish the night prior but, denied chest pain, SOB, abdominal pain, nausea, vomiting, dysuria, hematuria, diarrhea, and recent trauma. On admission, he was afebrile. Iniital labs with WBC 11.46, Cr and LFT wnl. XR R foot with osteomyelitis of the first distal phalanx, overlying soft tissue edema, and soft tissue gas. MRI R foot with osteomyelitis of the great toe, with medial ulcer measuring 1.8 cm, no abscess. RLE venous doppler negative for DVT. RLE arterial doppler w/o high- grade stenosis. S/p OR on 10/03 and underwent R great toe amputation (per op note, first MTP joint without purulence, articular cartilage intact, cx were sent from bone at necrotic ulcer). On evaluation, patient reports doing well. He does not have any pain. No chest pain, sob, abdominal pain, vomiting, or diarrhea. Notes some sinus congestion since being in the hospital. Allergies Allergy/AdvReac Type Severity Reaction Status Date / Time doxycycline Allergy Mild Hives Verified 10/03/23 20:09 PAULINA Inhibitors AdvReac Intermediate Cough Verified 10/03/23 20:09 Home Medications Medication Instructions Recorded Confirmed Type pyridostigmine bromide 60 mg tablet 120 mg PO QID PRN NEEDED FOR MS 02/22/21 10/03/23 History blood sugar diagnostic (OneTouch #100 ea 11/29/21 10/03/23 Rx Verio test strips) blood-glucose meter (OneTouch #1 ea 11/29/21 10/03/23 Rx Verio Meter) lancets 33 gauge (OneTouch Delica #100 ea 11/29/21 10/03/23 Rx Lancets) prednisone 5 mg tablet 5 mg PO DAILY 02/21/23 10/03/23 History tirzepatide 15 mg/0.5 mL 15 mg (0.5 mL) subcut WK #6 mL 02/21/23 10/03/23 Rx subcutaneous pen injector (Urban) labetalol 200 mg tablet 200 mg PO BID #180 tabs 02/22/23 10/03/23 Rx metformin 1,000 mg tablet 1,000 mg PO BID #180 tabs 09/10/23 10/03/23 Rx amoxicillin 875 mg-potassium 1 tab PO Q12H 10 days #20 tabs 10/03/23 10/03/23 Rx clavulanate 125 mg tablet Patient History Medical History Diabetes mellitus type 2, uncontrolled Abnormal liver function test Cutaneous candidiasis Dysarthria Dyslipidemia Myasthenia gravis (~07/2018) Paresthesia Transient ischemic attack Venous insufficiency Vertebrobasilar artery insufficiency Vitamin D deficiency Surgical History No significant past surgical history Family History Father Renal failure Mother Rheumatoid arthritis Hypertension Breast cancer Denies family history of Colon cancer Ovarian cancer Prostate cancer Myocardial infarction Social History Smoking Status: Never smoker Second Hand Exposure: No; Do You Dip or Chew Tobacco: No; Hx Alcohol Use: No Hx Substance Use: No Preferred Language: Romanian Communication Ability: Effective Visual Impairment: No Limitations Hearing Ability: Normal Formal Service Waiter Required: No Beliefs That Will Affect Care: None marital status: Current Living Situation: Spouse current occupational status: employed How many Children do You have: 2 Other Information That Helps Us Care for You: No Feels Safe at Home: Yes Safety Concerns: Feels Safe At This Time Childhood Exposure to Second-Hand Smoke: No Diet: regular Dental Care, Regularly: No Physical Activity Frequency: Daily Seatbelt Use: always Sunscreen Use: No Assistive Devices: Cane and Walker Review of System 10-point review of systems reviewed and are negative except for as above. Physical Exam Physical Exam: General: Awake, alert, no acute distress HEENT: NC/AT, EOMI, mmm Neck: supple Lungs: respirations non-labored Heart: nl peripheral perfusion Abdomen: soft, NT/ND Ext: no LE edema, right foot with sutures, erythema near surgical site Neuro: Ox 3 Results & Data Vital Signs (Past 12 Hours) Vital Signs Temp Pulse Resp BP BP Pulse Ox O2 Del Method 10/07/23 07:48 36.5 C 85 16 181/96 H 97 Room Air 10/06/23 23:10 84 174/86 H Laboratory Results Labs reviewed Diagnostic Findings Imaging reviewed (1) Cellulitis Laterality: right Site of cellulitis: extremity Site of cellulitis of extremity: lower extremity Qualified Code(s): L03.115 - Cellulitis of right lower limb
--- NOTE | 2023-10-07 11:36 | Discharge Summary ---
Discharge Summary Date of Service October 07, 2023 Notes For Next Care Provider presented with increasing wound on his right great toe, found to be osteomyelitis, resulting in amputation with Dr. Lao on 10/03. Seen by infectious disease, recommended p.o. Augmentin through 10/10. blood cultures no growth at 48 hours at discharge Medication Changes From Visit PO augmentin BID through 10/10 Admission HPI Per Admitting Provider Patient is a 52-year-old male who our services were asked to consult on for a right great toe ulceration with osteomyelitis. Patient was seen bedside this morning at approximately 9 15 a.m. He is alert and oriented x 3 in good spirits. He explains that he has had problems with a wound on his right great toe for approximately 2 years. He explains that he is a diabetic that has a history of being uncontrolled and has a history of myasthenia gravis and had been taken large amounts of prednisone to control this. He explains most recently his steroid dose has been decreased to 5 mg. He states he had not had care for the toe for approximately a year because it was not bothersome and was small did not change in any size. He does report he did see [facility] for short period time with Dr. Ragland however he was unable to afford the $250 visit so he stopped going. He states for the past week the toe has grown in size with the wound on the bottom of his toe as well as the size of the toe has become swollen and painful if he bumps it. Otherwise he has no pain. He states he does have some tingling in his foot and diminished sensation compared to the left foot. He states that a week ago he started developing some fever and chills but this since has subsided. He denies being on any recent antibiotics besides what he started in the ER. He is ambulatory and employed by [employer]. He states he has not had anything to eat or drink since midnight last night. He has no history of cardiac or pulmonary issues, history of MRSA infections, latex or metal allergies. It is noted in his history he has history of a TIA. He denies any night sweats nausea or vomiting. Principal Dx & Hospital Course #1 = Principal Diagnosis (1) Osteomyelitis of right foot: Status post amputation of the right great toe on October [address] Lao - orthopedics consulted - WBAT as tolerated - follow up in on week - wound culture with Proteus vulgaris and group C beta strep - Received Vanco and cefepime. - ID consulted recommend Augmentin BID through 10/10 at discharge RLE venous doppler negative for DVT RLE arterial doppler: no high grade stenosis (2) MG, bulbar (myasthenia gravis): Stable. Continue prednisone and pyridostigmine did not require stress dose steroids (3) Diabetes mellitus type 2, uncontrolled: Resume home metformin (4) Hypertension, benign essential, goal below 140/90: Stable. Continue labetalol Plan Dispo: discharge to home today Discharge Exam General: NAD, VS as above Resp: normal respiratory effort, lungs clear to auscultation CV: RRR, no murmur, Abd: normal bowel sounds, non tender, no hepatosplenomegaly Extremities: Moves all extremities, dressing not removed from foot, post op shoe in place Neuro: A&O x3, Updated Medication List Medication Instructions Recorded Confirmed Type pyridostigmine bromide 60 mg tablet 120 mg PO QID PRN NEEDED FOR MS 02/22/21 10/03/23 History blood sugar diagnostic (OneTouch #100 ea 11/29/21 10/03/23 Rx Verio test strips) blood-glucose meter (OneTouch #1 ea 11/29/21 10/03/23 Rx Verio Meter) lancets 33 gauge (OneTouch Delica #100 ea 11/29/21 10/03/23 Rx Lancets) prednisone 5 mg tablet 5 mg PO DAILY 02/21/23 10/03/23 History tirzepatide 15 mg/0.5 mL 15 mg (0.5 mL) subcut WK #6 mL 02/21/23 10/03/23 Rx subcutaneous pen injector (Urban) labetalol 200 mg tablet 200 mg PO BID #180 tabs 02/22/23 10/03/23 Rx metformin 1,000 mg tablet 1,000 mg PO BID #180 tabs 09/10/23 10/03/23 Rx acetaminophen 325 mg tablet 650 mg (2 x 325 mg) PO Q6H 30 days 10/07/23 Rx #240 tabs amoxicillin 875 mg-potassium 1 tab PO BIDM 4 days #8 tabs 10/07/23 Rx clavulanate 125 mg tablet Hospital Stay Data Consultations 10/03/23 20:17 ED Decision to Admit Stat 10/03/23 21:30 Consult Orthopedic Surgery Routine 10/04/23 18:43 Consult Infectious Diseases Routine Procedures Performed Operation Date: 10/04/23 12:10 Actual Procedures p Right Great Toe Amputation(Right) - Horacio Lao MD Diagnostic Imagining Performed Foot X-Ray 10/03/23 15:30 RIGHT FOOT 3 VIEWS CLINICAL HISTORY: Infection. FINDINGS: 3 views of the right foot are correlated with radiographs of the first toe dated 01/30/2021. The skeletal structures are osteopenic. There is severe erosive/destructive change seen involving the medial cortex throughout the first distal phalanx with bony fragmentation and displaced fragments. No additional similar foci of destructive change are identified throughout the remainder of the foot. There is significant soft tissue edema in the first toe with soft tissue gas. Mild arthritic change is seen throughout the foot, greatest at the first metatarsophalangeal joint. There are small dorsal and large plantar heel spurs. Atherosclerotic calcification is observed in the regional arteries. IMPRESSION: 1. There is osteomyelitis of the first distal phalanx as above with significant destructive change, overlying soft tissue edema, and soft tissue gas. 2. No additional similar appearing foci of destructive bony change are seen throughout the remainder of the foot. Electronically signed by: Peng Alexandre M.D. 10/03/2023 5:14 PM Venous Doppler Study 10/03/23 15:30 Exam(s): US VENOUS RIGHT LOWER EXTREMITY EXAM: US Duplex Right Lower Extremity Veins CLINICAL HISTORY: Reason for exam: Right calf pain. TECHNIQUE: Real-time duplex ultrasound scan of the right lower extremity veins integrating B-mode two-dimensional vascular structure, Doppler spectral analysis, color flow Doppler imaging and compression. COMPARISON: No relevant prior studies available. FINDINGS: Deep veins: Unremarkable. No DVT in the visualized common femoral, femoral, proximal deep femoral or popliteal veins. The veins demonstrate normal color flow, are normally compressible, with normal phasic flow and/or augmentation response. Soft tissues: No acute findings. No popliteal cyst. Lymph nodes: Prominent right inguinal lymph nodes within normal fatty hilum favored to be reactive. IMPRESSION: No evidence of right lower extremity deep venous thrombosis. Electronically signed by: Mj Modi M.D. 10/03/23 21:08 PM Foot MRI 10/03/23 21:59 Exam(s): MRI RIGHT FOOT Without Contrast EXAM: MR Right Lower Extremity Without Intravenous Contrast, Foot CLINICAL HISTORY: Reason for exam: OM right first toe, monitor for progression. TECHNIQUE: Multiplanar magnetic resonance images of the right foot without intravenous contrast. COMPARISON: No relevant prior studies available. FINDINGS: Positive for osteomyelitis of the great toe, consisting of edema and marrow infiltration of the great toe proximal and distal phalanges. Ulceration along the medial aspect of the great toe measured approximately 1.8 cm and is 1 cm deep. No remaining areas of osteomyelitis. No fluid collection or abscess. Moderate dorsal subcutaneous edema along the lateral aspect of the midfoot. No acute fracture. IMPRESSION: Positive for osteomyelitis of the great toe, with medial ulcer measuring 1.8 cm. No fluid collection or abscess. Electronically signed by: Kash Arthur MD 10/04/23 00:27 AM Duplex Scan Lower Extremity Artery 10/04/23 00:00 ULTRASOUND RIGHT LOWER EXTREMITY ARTERIAL CLINICAL HISTORY: Diabetic foot wound. COMPARISON STUDY: No priors. TECHNIQUE: Real-time grayscale and color Doppler sonography of the arteries of the right lower extremity is performed from the inguinal crease to the foot. Ankle-brachial indices were not assessed due to right lower extremity cellulitis and pain. FINDINGS: Atherosclerotic plaque and irregularity is seen throughout the arteries of the right lower extremity. There are triphasic waveforms in the common femoral artery with velocities measuring up to 113 cm/s. The profundus fe caroline artery is patent with velocities measuring up to 55 cm per second. There are triphasic arterial waveforms throughout the superficial, femoral and popliteal arteries. Velocities in the superficial femoral artery measure up to 111 cm/s and velocities in the popliteal artery measure up to 101 cm/s. Normal arterial waveforms are maintained throughout the calf vessels. There is three- vessel runoff to the foot. Velocities in the calf arteries measure up to 133 cm/s. The dorsalis pedis artery is patent with velocities measure up to 161 cm second. IMPRESSION: 1. There is no sonographic evidence of high-grade stenosis or focal vessel cut off throughout the arteries of the right lower extremity. 2. Ankle brachial disease were not assessed due to lower extremity cellulitis and pain. Dictated: 10/04/2023 8:57 AM Transcribed: 10/04/2023 9:38 AM Aly [id number] [email or web address] Electronically signed by: Peng Alexandre M.D. 10/04/2023 11:12 AM Pending Results Patient Have Any Pending Studies at Discharge: Yes ( blood cultures) Discharge Instructions Given to Patient (Per Discharging Provider) Mr. Link, you were hospitalized after progressing infection of the right first toe which resulted in amputation by Dr. Lao on 10/04/2023. you received IV antibiotics while you are in the hospital and will be discharged with oral antibiotics. You saw the infectious disease doctor and they recommended Augmentin 875 mg twice a day through 10/10, this was sent into your pharmacy no other changes were made to your home medications you have pending blood cultures at discharge, these are negative at this time but do take 5 days to get final result please follow-up with orthopedics and your primary care doctor. Thank you for allowing us to participate in your care Total Time Total Time Spent Total Time Spent (In Minutes): Time spend day of discharge 35 minutes including direct patient care, medication reconciliation, documentation, review of labs and images, and coordination of care. Coding Level of Care Code 54457 INP/OBS DISCH >30 MIN Diagnoses Osteomyelitis of right foot M86.9 MG, bulbar (myasthenia gravis) G70.00 Diabetes mellitus type 2, uncontrolled E11.65 Hypertension, benign essential, goal below 140/90 I10
[2023-10-07] MEDS ORDERED: AMOXICILLIN/CLAVULANATE 875 MG TAB PO SCH (17:00)
== END 2023-10-07 13:26 | disposition home or self-care (01) | DRG 617 ==
LOC: ED 14:46 → SUATTDRO 20:34 → 3N 20:34